=== PATIENT | female | born 1980 | race Caucasian/White ===

== ENCOUNTER 2024-03-31 09:56 | Outpatient (AMB) | payer OTHER, SELFPAY ==
--- NOTE | 2024-03-31 10:07 | AM.OFFWIN_ITS ---
Intake Vital Signs 03/31/24 10:09 Height 5 ft 2 in Weight 150 lb BMI 27.4 BP 114/70 Blood Pressure Location Lt brachial Position Sitting Pulse 81 Pulse Source Pulse Oximeter Temp 98.0 F Temp Source Oral Pulse Oximetry (%) 98 Oxygen Delivery Method Room Air Intake Visit Reasons: [employer] COVID + ~ cold symptoms Intake Note: Patient here for bilat ear fullness, sinus pressure, cough that has been present for about 1 week. she took a at home covid test which was positive. Patient Tobacco Use Status: Former Tobacco user Allergies No Known Allergies Allergy (Verified 03/31/24 10:10) Do you need a note to return to daycare/school/sports/work: Yes HPI [employer] COVID + ~ cold symptoms HPI Details This note is constructed using voice recognition software. While every effort has been made to ensure accuracy, surface room shop optician errors may have been included. The patient is a 43 year old female who presents to the clinic today with sinus pressure, ear pressure and mild sore throat for the past week and COVID positive at home as of last night. She denies fever, chills, shortness of breath, body aches. She has not taken anything to alleviate her symptoms, typically she just ?Toughs through it?. PFSH Social History Patient Tobacco Use Status: Former Tobacco user Review of Systems Const All systems reviewed & are unremarkable except as noted in HPI and below Physical Exam Vital Signs: Last Vital Signs Temp 98.0 F 03/31/24 10:09 Pulse 81 03/31/24 10:09 BP 114/70 03/31/24 10:09 Pulse Ox 98 03/31/24 10:09 Oxygen Delivery Method Room Air 03/31/24 10:09 BMI result Body Mass Index 27.4 Const General: cooperative, healthy appearing, comfortable and no acute distress Orientation/consciousness: patient oriented x3 Limitations: no limitations HEENT Head: Yes normal to inspection Ears: hearing grossly normal bilaterally, external ears normal and TM's normal bilaterally General nose exam: Normal external nose present, Normal nares present and No nasal discharge present Face and sinus: Yes normal facial exam and Yes sinuses nontender Mouth: Normal oral and palatal mucosa present and moist mucous membranes Throat: Yes tonsils normal, Yes uvula midline and Yes posterior oropharynx abnormal (Erythema) Eyes General: appearance normal, both eyes and all related structures Neck Neck: Yes normal visual inspection Resp Effort & Inspection: normal respiratory effort, able to speak in complete sentences, Actively coughing, no respiratory distress, not tachypneic, no tripod positioning and no use of accessory muscles Auscultation: clear to auscultation bilaterally Cardio Jugular venous distension: no JVD Rate: regular rate Rhythm: regular rhythm Heart sounds: S1 normal heart sound present, S2 normal heart sound present, no click, no gallops, no murmurs and no rubs Skin General skin exam: no rashes or lesions noted, elasticity normal and turgor normal Neuro General: patient oriented x3 Extrem General: Yes normal to inspection and Yes no clubbing, cyanosis or edema Assessment & Plan Assessment & Plan (1) COVID: Code(s): U07.1 - COVID-19 Plan: Viral deferred due to at-home positive test. Advised mask wearing while symptomatic and quarantine per current CDC guidelines. Reviewed at home support methods including hydration, humidification, vix vapor rub, sinus rinse, and otc treatment options. Discussed treatment with antiviral therapy for covid with paxlovid, including appropriate use and side effects, and need to start medication within 5 day of symptom onset, preferably within 48 hours of symptom onset. Patient wishes to decline antiviral therapy. Advised follow up with worsening symptoms such as dyspnea at rest, which would require emergent evaluation. Plan See above for full details and plan. Coding Level of Care Code New Pt Level 3 (07912) Diagnoses COVID U07.1
[2024-03-31 10:09] VITALS: BP 114/70; PULSE 81; TEMP 36.7; O2SAT 98; BMI 27.4
--- OUTSIDE RECORDS SUMMARY | 2024-04-06 01:21 | XMS_ITS | Continuity of Care Document ---
Author Name [facility] Organization [facility] Care Team Providers Care Data Technical Lead Name Role Phone [facility] Unavailable Unavailable Problems Combined list of problems from 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 It does not include entries that were removed or entered in error. Problem Status Onset Date Problem Type Date of Resolution Comments Source Segmental and somatic dysfunction of pelvic region Active 024 Diagnosis [id number] [facility] Other intervertebral disc degeneration, lumbar region Active 024 Diagnosis [id number] [facility] Segmental and somatic dysfunction of lumbar region Active 024 Diagnosis [id number]-[id number] [facility] Segmental and somatic dysfunction of sacral region Active 024 Diagnosis [id number] [facility] Segmental and somatic dysfunction of thoracic region Active 024 Diagnosis [id number] [facility] Cough, unspecified Active Condition DoD Dry eye syndrome of bilateral lacrimal glands Active Condition DoD Regular astigmatism, bilateral Active Condition [facility] marital problem Inactive Condition [facility] visit for: screening exam malignant neoplasm skin Inactive Condition [facility] skin neoplasm trunk benign Active Condition [facility] skin lesion [Sx] Inactive Condition [facility] routine pelvic exam Inactive Condition DoD cystitis Inactive Condition [facility] deployment Active Condition [facility] assess patient condition work-related occupational disease Inactive Condition ASSESS PATIENT CONDITION WORK-RELATED OCCUPATIONAL DISEASE (INITIAL POST-DEPLOYMENT ASSESSMENT: DOCUMENTED ON [id number]) [facility] pharyngitis Inactive Condition PHARYNGI TIS: 31 y/o f evaluated for throat irritation. Suspect PND, prescribed Cepacol for irritation/pain. RTC if symptoms worsen or do not improve. [facility] joint pain, localized in the knee Inactive Condition joint pain, localized in the knee: right knee exam raising posibility of lateral meniscal injury - although symptoms were improving after a few days on motrin and feel patient exacerbated by going back to running prematurely crutches x 48 hours to give period of rest off of the knee continue motrin, will add vicodin for improved pain control - med instructions and precautions given ice packs given NO running or cardio or LE wt lifting for at least next 10 days - may need to go longer until pain free when restarting activity do so gradually rtc if symptoms not steadily improving next 72 hours and sooner prn worsening DoD common cold Inactive Condition COMMON COLD DoD ankle joint pain Inactive Condition ank le joint pain: R ankle. Suspect mild inflammation in deltoid ligament from new boots. Will try ice and/or heat, along with tylenol as below. May use marcin wrap prn for comfort. f/u if pain worsening or not improving over the next 1-2 weeks. Use caution to avoid ice or uneven ground. May try otc orthotics. Pt v/u, agrees. DoD visit for: examination of subpopulation Active Condition Do[facility] headache Inactive Condition headache: Certainly may have underlying migraines, but not diagnosed as of yet. Suspect exacerbation due to caffiene withdrawal, stress of deployment, and sleep schedule getting adjusted. Will treat with tylenol, as this has worked in the past. May also try tylenol/butalbita l/caffiene prn, do not combine with tylenol. Hydrate well. Clean air filter in room. Keep headache diary to help sort out triggers. f/u with worsening pain or new sx. Pt v/u, agrees. DoD other specified viral disease Inactive Condition [facility] vertigo Inactive Condition [facility] visit for: services physical pre-deployment Active Condition [facility] Gynecologic Services Intrauterine Device (IUD) Checking Inactive Condition [facility] Intrauterine Device (IUD) Insertion Active Condition [facility] phase of life or life circumstance problem Active Condition [facility] routine history and physical Active Condition [facility] Supervision Of Normal Inactive Condition [facility] constipation Inactive Condition [facility]D sprain joint ligament pelvic symphysis pubis Inactive Condition [facility] lumbago Active Condition [facility] sciatica Active Condition [facility] Pap Smear (+) Low Grade Squamous Intraepith Lesion W/ Atypia Active Condition [facility] preg complications: antepartum cond or prior comp delivery Active Condition [facility] joint pain, localized in the wrist Active Condition [facility] visit for: postsurgical exam Active Condition [facility] allergic rhinitis Active Condition [facility] carbuncle on the ear Inactive Condition [facility] depression Active Condition [facility] Gynecologic Services Contraceptive Management Inactive Condition [facility] visit for: exam Active Condition [facility] decr move affecting care of mother - antepartum condit Active Condition [facility] pain in leg lower Active Condition [facility] foot pain (soft tissue) Active Condition [facility]D hyperlipidemia Active Condition [facility] Dietary Counseling Pertaining To Specific Condition Active Condition DoD dermatophytosis Active Condition 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 Active Condition [facility]D migraine headache Active Condition [facility] Pap Smear (+) Low Grade Squamous Intraepithelial Lesion Active Condition [facility] Aftercare Following Surgery Active Condition [facility] routine checkup (6 - 42 wk) Inactive Condition [facility] skin abscess Inactive Condition [facility] pyoderma Inactive Condition [facility] tobacco use Active Condition [facility] lymph node abscess preauricular right Inactive Condition [facility] Administrative Evaluation Services Inactive Condition [facility] cellulitis of right external ear Inactive Condition [facility] Oral Contraceptives Active Condition [facility] visit for: issue medical certificate Active Condition [facility] sore throat acute Inactive Condition [facility] upper respiratory infection Inactive Condition [facility] cystitis acute Inactive Condition cipro and pyridium given, increase fluid, tylenol and/or motrin prn for pain, f/u with PCM DoD cough Active Condition Fluids/res t encouraged. DoD acute lymphadenitis axillary left Active Condition Pts symptoms likely related to lymphadenopathy within the left axilla. Will have her try warm/moist compresses and take anti-inflammatori es OTC prn discomfort. Pt will be set up for ultrasound scan if the sx persist. DoD Guidance: Concerns About Inadequate Physical Activity Active Condition [facility]D Patient Education - Injury Prevention Active Condition [facility] Patient Education - Alcohol Active Condition [facility] Patient Education Dietary Food Sources For Nutrients Active Condition [facility] Patient Counseling: Active Condition DoD astigmatism Active Condition [facility] Laboratory Studies Active Condition Informed her th at they are not back and can take 2 wks to get back. DoD nicotine dependence Active Condition Recommend tobac co cessation. [facility] Gynecologic Service Prescrip Of Contracept Agent - Repeat Rx Inactive Condition Discussed control options, patient will continue with Cyn regimen. DoD personal history presenting hazards to health Active Condition dysplasia f/u DoD visit for: issue repeat prescription for medication Active Condition DoD visit for: administrative purpose Inactive Condition DoD female pelvic pain Active Condition [facility]D visit for: issue medical certificate fitness Inactive Condition pt with no feve r or nausa vomiting bleeding problems consistant with serious acute process, but pt advised to call back in things worsen to extent she feels need to go to er DoD malaise Active Condition Favor acut e viral syndrome. Normal labs. Cannot fully exclude early , but unlikely with contraception, neg Hcg, and recent/on-time menses. Recommended 48 hours of quarters, increase fluids, rest. F/U if not improving or with other issues/concerns. DoD visit for: services physical Active Condition pt doing well. she is not happy about her transfer. she does have a diagnosis of MDD and on two antidepressants. no history of SI or hospitalization. [facility] with [facility] [place] [facility] [place] [facility]. they will be able to provide adequate medical care in [place] [facility].she is medically clear to go. DoD acute bronchitis Inactive Condition DoD cervical dysplasia Active Condition [facility] abdominal pain in the central upper belly (epigastric) Inactive Condition [facility] Cerv Pap (+) Low Grade Squamous Intraepithelial Lesion Active Condition [facility] Cervical Pap Smear Inactive Condition DoD routine gynecological exam with cervical pap smear Active Condition [facility]D midback pain Active Condition DoD Other Physical Therapy Inactive Condition [facility]D cervicalgia Active Condition [facility] Gynecologic Services Contraceptive Management Active Condition will refill nuvaring and get her to schedule for a pap since she is due. DoD depression Active Condition doing ext remely well.Has been on for an extended period, so will give a year supply.f/u if any other questions or concerns DoD backache Inactive Condition DoD nonallopathic lesions lumbar Active Condition DoD nonallopathic lesions thoracic Active Condition [facility] back strain Inactive Condition will sen d to PT and get back exercises... likely her headaches are stress and tension related from the prolonged posture at work. [facility] Gynecologic Services Prescription Of Contraceptive Agents Inactive Condition Reviewed r/b/se again- no contraindications . To start with next cycle, and f/u prn DoD irregular length of menstrual periods Active Condition [facility] Preventive Medicine Established Patient Checkup Adult 18-39 Years Inactive Condition [facility]D All[facility] rhinitis [facility] Other intervertebral disc degeneration, lumbar region Active Condition [facility] Medications Combined list of outpatient medications from 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Medications provided include 1) outpatient medications from the last 15 months, and 2) patient-reported medications. Medication Details Route Status Patient Instructions Prescription Expires Prescription Number Last Dispense Date Ordering Provider Order Date Order Qty Source Claritin 10 mg oral tablet 1 tab(s), Oral, Daily, PRN allergy symptoms , # 90 tab(s), 3 total refill(s ), Maintena nce, 1 tab(s) Oral Daily,ID N:allerg y symptoms , Pharmacy : [facility] Oral (given by mouth) Ordered 90.0 0042C-A F-H[facility]t [facility] Flonase 50 mcg/inh nasal spray 50 mcg, Nostril- Both, BID, # 16 g, 5 total refill(s ), Maintena nce, 50 mcg Nostril- Both BID, Pharmacy : [facility] Nostri l-Both (into the nose) Ordered 16.0 0042C-A F-H-[facility]t [facility] FLONASE-OTC (BRAND) 50 MCG DIPESH SPSN [9.9] Take or use exactly as directed .For the nose. Active 05/05/2024 [id number] 4 [address] [place] [address] GoLYTELY oral powder for reconstitut ion 240 mL, Oral, every 10 min, PRN other (see comment) , per clinic instruct ions, # 4,000 EA, 0 total refill(s ), Maintena nce, bowel prep, 240 mL Oral every 10 min,PRN: other (see comment) ,Instr:p er clinic instruct ions, Pharmacy : [facility] Oral (given by mouth) Discont inued 03/24/2022 4000.0 0042C[facility] Loratadine (Alavert ODT) Tablet 10 mg Oral May cause drowsine ss.Obtai n advice for OTCs. Active 05/05/2024 [id number] 4 [address] [place] [address] meloxicam 15 mg oral tablet meloxica m 15 mg oral tablet Start Date: 10/02/20 Stop Date: 01/28/22 Status: Disconti nued Discont inued 01/28/2022 No Facilit y Access methocarbam ol (U/D) 750 MG ORAL TAB May cause drowsine ss. Active 06/10/2024 [id number] 4 [address] [place] [address] methocarbam ol (U/D) 750 MG ORAL TAB May cause drowsine ss. 03/03/2024 [id number] 3 [address] [place] [address] methocarbam ol 750 mg oral tablet 2 tab(s), Oral, TID, X 7 days, # 42 tab(s), 0 total refill(s ), Acute, 2 tab(s) Oral TID,x7 days, Pharmacy : [facility] Oral (given by mouth) Complet ed 06/18/2023 42.0 0042C-[facility] olopatadine 0.1% ophthalmic solution 1 drop(s), Eye-Both , BID, # 5 mL, 2 total refill(s ), Maintena nce, 1 drop(s) Eye-Both BID, Pharmacy : [facility] Both eyes Ordered 5.0 0042C[facility] omeprazole 20 mg oral delayed release capsule omeprazo le 20 mg oral delayed release capsule Start Date: 10/02/20 Stop Date: 01/28/22 Status: Drei bren Discont inued 01/28/2022 No Facilit y Access Robaxin-750 oral tablet See Instruct ions, take 1-2 tab(s) Oral as needed for muscle spasm up to three times a day, # 45 cap(s), 0 total refill(s ), Maintena nce, take 1-2 tab(s) Oral as needed for muscle spasm up to three times a day, Pharmacy : [facility] Ordered 45.0 0042C-A [facility] tiZANidine 2 mg oral tablet See Instruct ions, 2 tab(s) Oral every 8 hr, # 40 cap(s), 0 total refill(s ), Maintena nce, take 1-2 tabs every 6 hours as needed, 2 tab(s) Oral every 8 hr, Pharmacy : [facility] Discont inued 03/13/2022 40.0 0042C[facility] Allergies, Adverse Reactions, Alerts Combined list of allergies from 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 It does not include entries that were removed or entered in error. Substance Category Reaction Severity Reaction type Status Date Reported Comments Source No Known Allergies Drug allergy (disorder) active 10/15/2022 [facility] Immunizations Combined list of available immunizations from the 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 Source tetanus and diphtheria toxoids, adsorbed, preservative free, for adult use (2 Lf of tetanus toxoid and 2 Lf of diphtheria toxoid) 3 2021 [id number] Sanofi Pasteur (PMC) complet ed tetanus and diphtheri a toxoids, adsorbed, preservat alex free, for adult use (2 Lf of tetanus toxoid and 2 Lf of diphtheri a toxoid) [facility] influenza, injectable, quadrivalent- pf 2020 [id number] 150 Gl[employer] complet ed influenza , injectabl e, quadrival ent-pf 02/22/21 Given Ambulat ory Pharmac y Influenza, injectable, quadrivalent, preservative free 8 2020 [id number] 150 [employer] End TechnologiesNICE (SKB) complet ed Influenza , injectabl e, quadrival ent, preservat alex free DoD COVID Vaccine Pfizer 2020 [id number] PFIZER complet ed COVID Vaccine [facility] 02/05/21 Given Ambulat ory Pharmac y SARS-COV-2 (COVID-19) vaccine, mRNA, spike protein, LNP, preservative free, 30 mcg/0.3mL dose 2 2020 [id number] 208 [employer], Inc (PFR) complet ed SARS-COV- 2 (COVID-19 ) vaccine, mRNA, spike protein, LNP, preservat alex free, 30 mcg/0.3mL dose DoD COVID Vaccine Pfizer 2020 [id number] PFIZER complet ed COVID Vaccine [facility] 01/15/21 Given Ambulat ory Pharmac y SARS-COV-2 (COVID-19) vaccine, mRNA, spike protein, LNP, preservative free, 30 mcg/0.3mL dose 1 2020 [id number] 208 Buck Mason, [employer] (PFR) complet ed SARS-COV- 2 (COVID-19 ) vaccine, mRNA, spike protein, LNP, preservat alex free, 30 mcg/0.3mL dose DoD influenza, injectable, quadrivalent- pf 2019 [id number] 150 Seqirus complet ed influenza , injectabl e, quadrival ent-pf 03/02/20 Given Ambulat ory Pharmac y Influenza, injectable, quadrivalent, preservative free 1 2019 [id number] 077 150 Seqirus (SEQ) complet ed Influenza , injectabl e, quadrival ent, preservat alex free DoD influenza, injectable, quadrivalent- pf 2018 [id number] 150 Seqirus complet ed influenza , injectabl e, quadrival ent-pf 02/23/19 Given Ambulat ory Pharmac y Influenza, injectable, quadrivalent, preservative free 16 2018 [id number] 601 150 Seqirus (SEQ) complet ed Influenza , injectabl e, quadrival ent, preservat alex free DoD influenza, injectable, quadrivalent- pf 2017 [id number] 150 Seqirus complet ed influenza , injectabl e, quadrival ent-pf 02/27/18 Given Ambulat ory Pharmac y Influenza, injectable, quadrivalent, preservative free 15 2017 [id number] 150 Seqirus (SEQ) comple t ed Influenza , injectabl e, quadrival ent, preservat alex free DoD tuberculin purified protein derivative 2016 [id number] 96 sanofi pasteur complet ed tuberculi n purified protein derivativ e 04/03/17 Given Ambulat ory Pharmac y influenza, seasonal, injectable-pf 2016 [id number] 140 Seqirus complet ed influenza , seasonal, injectabl e-pf 02/27/17 Given Ambulat ory Pharmac y Influenza, seasonal, injectable, preservative free 14 2016 [id number] 140 Seqirus (SEQ) comple t ed Influenza , seasonal, injectabl e, preservat alex free DoD influenza, seasonal, injectable 2015 [id number] 141 Seqirus complet ed influenza , seasonal, injectabl e 01/05/16 Given Ambulat ory Pharmac y Influenza, seasonal, injectable 13 2015 [id number] 141 Seqirus (SEQ) complet ed Influenza , seasonal, injectabl e DoD influenza, live, intranasal,qu adrivalent 2012 [id number] 149 Medimmune Inc comple t ed influenza , live, intranasa l,quadriv alent 03/01/13 Given Ambulat ory Pharmac y influenza, live, intranasal, quadrivalent 12 2012 [id number] 149 MedImmune, Inc. (MED) complet ed influenza , live, intranasa l, quadrival ent DoD influenza virus vaccine, live 2011 [id number] 111 Medimmune Inc comple t ed influenza virus vaccine, live 02/05/12 Given Ambulat ory Pharmac y influenza virus vaccine, live, attenuated, for intranasal use 11 2011 [id number] 111 Metreos Corporation, Inc. (MED) complet ed influenza virus vaccine, live, attenuate d, for intranasa l use DoD typhoid Vi capsular polysaccharid e vac 2011 [id number] 101 sanofi pasteur complet ed typhoid Vi capsular polysacch aride vac 11/21/11 Given Ambulat ory Pharmac y anthrax vaccine 2011 [id number] 24 Emergent [employer] complet ed anthrax vaccine 11/21/11 Given Ambulat ory Pharmac y anthrax vaccine 5 2011 [id number] 24 [employer] [place] (MIP) complet ed anthrax vaccine DoD typhoid Vi capsular polysaccharid e vaccine 1 2011 [id number] 101 Sanofi Pasteur (PMC) complet ed typhoid Vi capsular polysacch aride vaccine DoD tetanus, diphtheria, acellular pertu is 2011 [id number] 115 GlaxoSmithKli ks complet ed tetanus, diphtheri a, acellular pertussis 05/07/11 Given Ambulat ory Pharmac y tetanus toxoid, reduced diphtheria toxoid, and acellular pertu is vaccine, adsorbed 0 2011 [id number] 115 Buzzoek (SKB) complet ed tetanus toxoid, reduced diphtheri a toxoid, and acellular pertussis vaccine, adsorbed DoD influenza, seasonal, injectable-pf 2010 [id number] 140 complet ed influenza , seasonal, injectabl e-pf 01/30/11 Given Ambulat ory Pharmac y Influenza, seasonal, injectable, preservative free 1 2010 140 Transcribed (TRS) complet ed Influenza , seasonal, injectabl e, preservat alex free DoD influenza virus vaccine,split 2009 [id number] 15 sanofi pasteur complet ed influenza virus vaccine,s plit 03/20/10 Given Ambulat ory Pharmac y influenza virus vaccine, split virus (incl. purified surface antigen)-reti red CODE 1 2009 [id number] 15 Sanofi Pasteur (PMC) complet ed influenza virus vaccine, split virus (incl. purified surface antigen)- retired CODE DoD Novel influenza-H1N 1-09, injectable 2009 [id number] 127 Novartis Pharmaceutica complet ed Novel influenza -[id number], injectabl e 05/18/09 Given Ambulat ory Pharmac y Novel influenza-H1N 1-09, injectable 1 2009 [id number] 127 Novartis Vigilisticstica l Y[place]. (NOV) complet ed Novel influenza -[id number], injectabl e DoD influenza virus vaccine, live 2008 [id number] 111 [employer] Storage [employer] Inc comple t ed influenza virus vaccine, live 01/16/09 Given Ambulat ory Pharmac y influenza virus vaccine, live, attenuated, for intranasal use 1 2008 [id number] 111 [employer]reos Corporation, [employer]. (MED) complet ed influenza virus vaccine, live, attenuate d, for intranasa l use DoD anthrax vaccine 2008 [id number] 24 Emer[employer] complet ed anthrax vaccine 08/08/08 Given Ambulat ory Pharmac y anthrax vaccine 5 2008 [id number] [employer] [place] (MIP) complet ed anthrax vaccine DoD influenza virus vaccine, live 2007 [id number] 111 [employer] [facility] comple t ed influenza virus vaccine, live 01/20/08 Given Ambulat ory Pharmac y anthrax vaccine 2007 [id number] 24 [employer] complet ed anthrax vaccine 01/20/08 Given Ambulat ory Pharmac y anthrax vaccine 4 2007 [id number] [employer] [place] (MIP) complet ed anthrax vaccine DoD influenza virus vaccine, live, attenuated, for intranasal use 1 2007 [id number] 111 [employer], [employer]. (MED) complet ed influenza virus vaccine, live, attenuate d, for intranasa l use DoD anthrax vaccine 2007 [id number] 24 [employer] complet ed anthrax vaccine 08/18/07 Given Ambulat ory Pharmac y anthrax vaccine 3 2007 [id number] 24 [employer] [place] (MIP) complet ed anthrax vaccine DoD anthrax vaccine 2007 [id number] [employer] complet ed anthrax vaccine 08/04/07 Given Ambulat ory Pharmac y vaccinia (smallpox) vaccine 2007 [id number] 75 [employer] complet ed vaccinia (smallpox ) vaccine 4/9/08 Given Ambulat ory Pharmac y anthrax vaccine 2 2007 [id number] 24 [employer] Adina (MIP) complet ed anthrax vaccine DoD vaccinia (smallpox) vaccine 1 2007 [id number] [id number] 75 [facility] complet ed vaccinia (smallpox ) vaccine DoD anthrax vaccine 2007 [id number] [employer] complet ed anthrax vaccine 07/15/07 Given Ambulat ory Pharmac y typhoid Vi capsular polysaccharid e vac 2007 [id number] sanofi pasteur complet ed typhoid Vi capsular polysacch aride vac 07/15/07 Given Ambulat ory Pharmac y anthrax vaccine 1 2007 [id number] 24 [employer] [place] (MIP) complet ed anthrax vaccine DoD typhoid Vi capsular polysaccharid e vaccine 1 2007 [id number] Sanofi Pasteur ([facility]) complet ed typhoid Vi capsular polysacch aride vaccine DoD influenza virus vaccine, live 2006 [id number] 111 [employer] comple t ed influenza virus vaccine, live 03/24/07 Given Ambulat ory Pharmac y influenza virus vaccine, live, attenuated, for intranasal use 1 2006 [id number] 111 [employer]re[employer] Corporation, Inc. (MED) complet ed influenza virus vaccine, live, attenuate d, for intranasa l use [facility] influenza virus vaccine,split 2005 [id number] 15 sanofi pasteur complet ed influenza virus vaccine,s plit 04/14/06 Given Ambulat ory Pharmac y influenza virus vaccine, split virus (incl. purified surface antigen)-reti red CODE 1 2005 [id number] 15 Sanofi Pasteur ([facility]) complet ed influenza virus vaccine, split virus (incl. purified surface antigen)- retired CODE DoD influenza virus vaccine,split 2004 [id number] 15 sanofi pasteur complet ed influenza virus vaccine,s plit 04/11/05 Given Ambulat ory Pharmac y influenza virus vaccine, split virus (incl. purified surface antigen)-reti red CODE 1 2004 [id number] 15 Sanofi Pasteur ([facility]) complet ed influenza virus vaccine, split virus (incl. purified surface antigen)- retired CODE [facility] influenza virus vaccine, whole virus 2004 [id number] 16 sanofi pasteur complet ed influenza virus vaccine, whole virus 05/07/04 Given Ambulat ory Pharmac y influenza virus vaccine, whole virus 0 2004 [id number] 16 Sanofi Pasteur (PMC) complet ed influenza virus vaccine, whole virus DoD hepatitis A-hepatitis B vaccine 2003 [id number] 104 GlaxoSmithKli ne complet ed hepatitis A-hepatit is B vaccine 02/09/04 Given Ambulat ory Pharmac y hepatitis A and hepatitis B vaccine 3 2003 [id number] A6 104 SmithKline (SKB) complet ed hepatitis A and hepatitis B vaccine DoD influenza virus vaccine, whole virus 2003 [id number] 16 Novartis Pharmaceutica ls complet ed influenza virus vaccine, whole virus 06/09/03 Given Ambulat ory Pharmac y influenza virus vaccine, whole virus 0 2003 [id number] [employer] ls (PWJ) complet ed influenza virus vaccine, whole virus DoD hepatitis A-hepatitis B vaccine 2002 [id number] 6 104 GlaxoSmithKli ne complet ed hepatitis A-hepatit is B vaccine 09/24/02 Given Ambulat ory Pharmac y hepatitis A and hepatitis B vaccine 2 2002 [id number] 6 104 SmithKline (SKB) complet ed hepatitis A and hepatitis B vaccine DoD hepatitis A-hepatitis B vaccine 2002 [id number] 6 104 GlaxoSmithKli ne complet ed hepatitis A-hepatit is B vaccine 08/26/02 Given Ambulat ory Pharmac y measles, mumps and rubella virus vaccine 0 2002 03 () Not Given measles, mumps and rubella virus vaccine DoD varicella virus vaccine 1 2002 21 () Not Given varicella virus vaccine DoD hepatitis A and hepatitis B vaccine 1 2002 [id number] 6 104 SmithKline (SKB) complet ed hepatitis A and hepatitis B vaccine DoD tuberculin purified protein derivative 2002 [id number] 96 sanofi pasteur complet ed tuberculi n purified protein derivativ e 08/19/02 Given Ambulat ory Pharmac y meningococcal polysaccharid e (MPSV4) 2002 [id number] 32 sanofi pasteur complet ed meningoco ccal polysacch aride (MPSV4) 08/19/02 Given Ambulat ory Pharmac y influenza virus vaccine, whole virus 2002 [id number] 16 sanofi pasteur complet ed influenza virus vaccine, whole virus 08/19/02 Given Ambulat ory Pharmac y poliovirus vaccine, inactivated 2002 [id number] 10 sanofi pasteur complet ed polioviru s vaccine, inactivat ed 08/19/02 Given Ambulat ory Pharmac y tetanus-dipht h toxoids (Td) adult/adol 2002 [id number] 09 sanofi pasteur complet ed tetanus-d iphth toxoids (Td) adult/ado l 08/19/02 Given Ambulat ory Pharmac y tetanus and diphtheria toxoids, adsorbed, preservative free, for adult use (2 Lf of tetanus toxoid and 2 Lf of diphtheria toxoid) 0 2002 [id number] 09 Sanofi Pasteur (PMC) complet ed tetanus and diphtheri a toxoids, adsorbed, preservat alex free, for adult use (2 Lf of tetanus toxoid and 2 Lf of diphtheri a toxoid) DoD poliovirus vaccine, inactivated 0 2002 [id number] 10 Sanofi Pasteur (PMC) complet ed polioviru s vaccine, inactivat ed DoD influenza virus vaccine, whole virus 0 2002 [id number] 16 Sanofi Pasteur (PMC) complet ed influenza virus vaccine, whole virus DoD meningococcal polysaccharid e vaccine (MPSV4) 0 2002 [id number] 32 Sanofi Pasteur (PMC) complet ed meningoco ccal polysacch aride vaccine (MPSV4) DoD Results Combined list of recent chemistry, hematology and other laboratory results from Department of Defense and Veterans Affairs, ranging from 15 months to all on record, depending upon the facility. Order Name Results Value Reference Range Date Interpretation Specimen Comments Source Immunolo gy/Serol ogy QFT Incubation LC Incubati on performe d. 04/09 Result Comment: Performed At: [address] [id number] Ovidio Vang MD Ph:[phone] [facility] Immunolo gy/Serol ogy QFT-TB Gold Plus LC Negative 04/09 Result Comment: No response to M tuberculosi s antigens detected. Infection with M tuberculosi s is unlikely, but high risk individuals should be considered for additional testing (ATS/IDSA/C DC Clinical Practice Guidelines, 2017). The reference range is an Antigen minus Nil result of <0.35 IU/mL. Chemilumine scence immunoassay methodology Performed At: [address] [id number] Ovidio Vang MD Ph:[phone] [facility] Infectio us Disease HIV-1/O/2. EPI NON-REAC TIVE 04/09 Result Comment: INTERPRETAT ION(S): This method is a screening procedure for the detection of HIV p24 Antigen and Antibodies to HIV-1, including Group O, and/or HIV-2. NON-REACTIV E: HIV-1 antigen and HIV-1 / HIV-2 antibodies were not detected. No laboratory evidence of HIV infection. A negative test result does not exclude the possibility of exposure to or infection with HIV. HIV antibodies and/or p24 antigen may be undetectabl e in some stages of the infection and in some clinical conditions. If acute HIV infection is suspected, consider submitting another specimen to a reference laboratory for HIV-1 RNA. SCREEN REACTIVE - CONFIRMATIO N TO FOLLOW: Possible presence of HIV-1 antibodies, HIV-2 antibodies and/or HIV-1 p24 antigen. Specimen will reflex to the confirmatio n testing that fulfills the Center for Disease Control and Prevention' s HIV diagnostic algorithm. Refer to [facility] Lab Guide for additional information : [email or web address]x. [email or web address] x Testing performed by [employer] [facility]imeshuminesevelyn ce. Performed by: Epidemiolog y Laboratory Service [facility] [id number] [place] [phone] [facility] Immunolo gy/Serol ogy QFT Criteria LC COMMENT 04/09 Result Comment: QuantiFERON -TB Gold Plus is a qualitative indirect test for M tuberculosi s infection (including disease) and is intended for use in conjunction with risk assessment, radiography , and other medical and diagnostic evaluations . The QuantiFERON -TB Gold Plus result is determined by subtracting the Nil value from either TB antigen (Ag) value. The Mitogen tube serves as a control for the test. [facility] Immunolo gy/Serol ogy QFT TB1 Ag Value LC 0.47 IU/mL 04/09 [facility] Immunolo gy/Serol ogy QFT TB2 Ag Value LC 0.45 IU/mL 04/09 [facility] Immunolo gy/Serol ogy QFT Nil Value LC 0.38 IU/mL 04/09 [facility] Immunolo gy/Serol ogy QFT Mitogen Value LC >10.00 IU/mL 04/09 Result Comment: Performed At: [address] [id number] Ovidio Vang MD Ph:[phone] [facility] Vital Signs Combined list of inpatient and outpatient Vital Signs from Department of Defense and Veterans Affairs, ranging from 12 months to all on record, depending upon the facility. Vital Sign Value Date Comments Source Peripheral Pulse Rate 63bpm 03/24/2022 16:15:00 [facility] Heart Rate Monitored 62bpm 03/24/2022 16:15:00 Ambulatory Pharmacy Respiratory Rate 11br/min 03/24/2022 16:15:00 [facility]ulatory [facility] Systolic Blood Pressure 96mm[Hg] 03/24/2022 16:15:00 Ambulatory Pharmacy Diastolic Blood Pressure 65mm[Hg] 03/24/2022 16:15:00 [facility]ulatory [facility]acy Mean Arterial Pressure, Calc 75mm[Hg] 03/24/2022 16:15:00 Ambulatory P harmacy Systolic Blood Pressure 103mm[Hg] 03/04/2023 15:02:00 Ambulatory Pharmacy Diastolic Blood Pressure 64mm[Hg] 03/04/2023 15:02:00 Ambulatory Pharmacy Mean Arterial Pressure, Calc 77mm[Hg] 03/04/2023 15:02:00 Ambulatory P harmacy Peripheral Pulse Rate 69bpm 03/04/2023 15:02:00 Ambulatory Pharmacy Respiratory Rate 16br/min 03/04/2023 15:02:00 Ambulatory Pharmacy Temperature Oral 36.9Cel 03/04/2023 15:02:00 Ambulatory Pharmacy BP Site 03/04/2023 15:02:00 [facility] Blood Pressure Manual 03/04/2023 15:02:00 Ambulatory Pharmacy Peripheral Pulse Rate 77bpm 03/24/2022 15:45:00 Ambulatory Pharmacy Heart Rate Monitored 75bpm 03/24/2022 15:45:00 Ambulatory Pharmacy Respiratory Rate 12br/min 03/24/2022 15:45:00 Ambulatory Pharmacy Systolic Blood Pressure 95mm[Hg] 03/24/2022 15:45:00 Ambulatory Pharmacy Diastolic Blood Pressure 57mm[Hg] 03/24/2022 15:45:00 Ambulatory Pharmacy Mean Arterial Pressure, Calc 70mm[Hg] 03/24/2022 15:45:00 Ambulatory P harmacy Peripheral Pulse Rate 67bpm 03/24/2022 16:05:00 Ambulatory Pharmacy Heart Rate Monitored 65bpm 03/24/2022 16:05:00 Ambulatory Pharmacy Respiratory Rate 11br/min 03/24/2022 16:05:00 Ambulatory Pharmacy Systolic Blood Pressure 97mm[Hg] 03/24/2022 16:05:00 Ambulatory Pharmacy Diastolic Blood Pressure 59mm[Hg] 03/24/2022 16:05:00 Ambulatory Pharmacy Mean Arterial Pressure, Calc 72mm[Hg] 03/24/2022 16:05:00 Ambulatory P harmacy Heart Rate Monitored 82bpm 03/24/2022 15:40:00 Ambulatory Pharmacy Peripheral Pulse Rate 74bpm 03/24/2022 15:55:00 Ambulatory Pharmacy Heart Rate Monitored 68bpm 03/24/2022 15:55:00 Ambulatory Pharmacy Respiratory Rate 11br/min 03/24/2022 15:55:00 Ambulatory Pharmacy Systolic Blood Pressure 94mm[Hg] 03/24/2022 15:55:00 Ambulatory Pharmacy Diastolic Blood Pressure 55mm[Hg] 03/24/2022 15:55:00 Ambulatory Pharmacy Mean Arterial Pressure, Calc 68mm[Hg] 03/24/2022 15:55:00 Ambulatory P harmacy Temperature Oral 36.7Cel 01/28/2022 13:46:00 Ambulatory Pharmacy BP Site 01/28/2022 13:46:00 [facility] Blood Pressure Manual 01/28/2022 13:46:00 Ambulatory Pharmacy Temperature Oral 36.8Cel 03/13/2022 21:14:00 Ambulatory Pharmacy BP Site 03/13/2022 21:14:00 [facility] Blood Pressure Manual 03/13/2022 21:14:00 Ambulatory Pharmacy Peripheral Pulse Rate 67bpm 03/24/2022 16:00:00 Ambulatory Pharmacy Heart Rate Monitored 70bpm 03/24/2022 16:00:00 Ambulatory Pharmacy Respiratory Rate 19br/min 03/24/2022 16:00:00 Ambulatory Pharmacy Systolic Blood Pressure 102mm[Hg] 03/24/2022 16:00:00 Ambulatory Pharmacy Diastolic Blood Pressure 64mm[Hg] 03/24/2022 16:00:00 Ambulatory Pharmacy Mean Arterial Pressure, Calc 77mm[Hg] 03/24/2022 16:00:00 Ambulatory P harmacy Peripheral Pulse Rate 62bpm 03/24/2022 16:20:00 Ambulatory Pharmacy Heart Rate Monitored 69bpm 03/24/2022 16:20:00 Ambulatory Pharmacy Respiratory Rate 14br/min 03/24/2022 16:20:00 Ambulatory Pharmacy Systolic Blood Pressure 102mm[Hg] 03/24/2022 16:20:00 Ambulatory Pharmacy Diastolic Blood Pressure 62mm[Hg] 03/24/2022 16:20:00 Ambulatory Pharmacy Mean Arterial Pressure, Calc 75mm[Hg] 03/24/2022 16:20:00 Ambulatory P harmacy Heart Rate Monitored 73bpm 03/24/2022 15:35:00 Ambulatory Pharmacy Peripheral Pulse Rate 75bpm 03/24/2022 15:50:00 Ambulatory Pharmacy Heart Rate Monitored 77bpm 03/24/2022 15:50:00 Ambulatory Pharmacy Respiratory Rate 12br/min 03/24/2022 15:50:00 Ambulatory Pharmacy Systolic Blood Pressure 100mm[Hg] 03/24/2022 15:50:00 Ambulatory Pharmacy Diastolic Blood Pressure 55mm[Hg] 03/24/2022 15:50:00 Ambulatory Pharmacy Mean Arterial Pressure, Calc 70mm[Hg] 03/24/2022 15:50:00 Ambulatory P harmacy Temperature Temporal Artery 36.3Cel 03/24/2022 15:04:00 Ambulatory Pharmacy Systolic Blood Pressure 118mm[Hg] 05/06/2023 19:28:00 Ambulatory Pharmacy Diastolic Blood Pressure 86mm[Hg] 05/06/2023 19:28:00 Ambulatory Pharmacy Mean Arterial Pressure, Calc 97mm[Hg] 05/06/2023 19:28:00 Ambulatory P harmacy Peripheral Pulse Rate 83bpm 05/06/2023 19:28:00 Ambulatory Pharmacy Respiratory Rate 16br/min 05/06/2023 19:28:00 Ambulatory Pharmacy Temperature Oral 36.8Cel 05/06/2023 19:28:00 Ambulatory Pharmacy BP Site 05/06/2023 19:28:00 [facility] Blood Pressure Manual 05/06/2023 19:28:00 Ambulatory Pharmacy Peripheral Pulse Rate 62bpm 03/24/2022 16:10:00 Ambulatory Pharmacy Heart Rate Monitored 63bpm 03/24/2022 16:10:00 Ambulatory Pharmacy Respiratory Rate 12br/min 03/24/2022 16:10:00 Ambulatory Pharmacy Systolic Blood Pressure 95mm[Hg] 03/24/2022 16:10:00 Ambulatory Pharmacy Diastolic Blood Pressure 63mm[Hg] 03/24/2022 16:10:00 Ambulatory Pharmacy Mean Arterial Pressure, Calc 74mm[Hg] 03/24/2022 16:10:00 Ambulatory P harmacy Encounters Combined list of: 1) Encounters from Department of Veterans Affairs facilities going back up to thelast 18 months. 2) Encounters from the Department of Defense facilities going back up to 280 months. Location Location Details Encounter Type Encounter Number Reason For Visit Attending Provider ADM Date DC Date Status Disposition Source [employer](Patient Support Specialist ecology) OUTPATIENT [id number] UMESH CHRISTIE 09/25 Released w/o Limitations [employer](G ynecolo gy) [employer](Patient Support Specialist ecology) OUTPATIENT [id number] EVAL LUMP IN VAGINAL AREA BALJIT FENTON 02/21 Released w/o Limitations [employer](G ynecolo gy) [facility] OUTPATIENT [id number] CONSULT ATION FOR BACK PAIN AND HEADACH ES AMENTTANION L 09/08 Released w/o Limitations [employer](F amily Practic e) [employer](Phy sical Therapy) OUTPATIENT [id number] BACK STRAIN RASHIDA RODRIGUEZRI L 09/15 Released w/o Limitations [employer](P hysical Therapy ) [employer](Phy sical Therapy) OUTPATIENT [id number] JENNIFER RHODRI L 09/18 Released w/o Limitations [employer](P hysical Therapy ) [employer](Beh avior Health Consultan t) OUTPATIENT [id number] referra l from ILIR Ricardo 09/23 Released w/o Limitations [employer](B ehavior Health Consult ant) [employer]([facility]) OUTPATIENT [id number] RENEWAL OF BCP'S AMENT, BAUTISTA L 09/26 Released w/o Limitations [employer](F amily Practic e) [employer](Phy sical Therapy) OUTPATIENT [id number] VAISHALI RODRIGUEZ Myriam 10/02 Released w/o Limitations [employer](P hysical Therapy ) [employer]([facility] Consultan t) OUTPATIENT [id number] f/u VIRAL, ILIR W 10/14 Released w/o Limitations [employer](B ehavior Health Consult ant) [employer](Patient Support Specialist ecology) OUTPATIENT [id number] PAP EXAM BALJIT FENTON S 10/21 Released w/o Limitations [employer](G ynecolo gy) [employer]([facility] Consultan t) OUTPATIENT [id number] f/u VIRAL, ILIR W 11/04 Released w/o Limitations [employer] [facility](B ehavior Health Consult ant) [facility]([facility]) OUTPATIENT [id number] F/U ON MED AMENBAUTISTA Wilson L 11/05 Released w/o Limitations [employer] [facility](F amily Practic e) [employer](Patient Support Specialist ecology) OUTPATIENT [id number] colpo ELICEO, BALJIT S 11/20 Released w/o Limitations [employer](G ynecolo gy) [facility]([facility]) OUTPATIENT [id number] SEVERE STOMACH PAINS RAYMOND MARTINEZ 02/25 Released w/o Limitations [facility] [facility](F amily Practic e) [employer](Patient Support Specialist ecology) OUTPATIENT [id number] COLPO ELICEO, BALJIT S 04/02 Released w/o Limitations [employer](G ynecolo gy) [facility]([facility]) OUTPATIENT [id number] SOB/COU GH/DIAR RAYMOND JARA 04/28 Sick at Home/Quarter s [employer] [facility](F amily Practic e) [facility]([facility]) OUTPATIENT [id number] MARLO ALBA 05/20 Released w/o Limitations [facility] [facility](F amily Practic e) [facility]([facility]) OUTPATIENT [id number] DIZZY/L IGHT HEADED/ BEL BLISSMARINE FRAGOSO Corie 07/06 Sick at Home/Quarter s [facility](F amily Practic e) [facility]) TELE CONSULT [id number] RLQ pain MAYRA EARLY I 11/02 [facility](A fter Hours [facility]) [facility]) OUTPATIENT [id number] RLQ pain FLY RIVERA Yasmeen 11/02 Released w/o Limitations [facility] [facility](F amily Practic e) [facility] [facility] [employer]([facility]) TELE CONSULT [id number] lab BRANDT FALCON L 11/03 [facility](F amily Practic e) [employer](Patient Support Specialist ecology) OUTPATIENT [id number] FU PAP FOR COLPOSC OPY BALJIT FENTON S 11/06 Released w/o Limitations [employer](G ynecolo gy) [facility](Int ernal Medicine) TELE CONSULT [id number] MILTON BUENO 01/26 [facility](I nternal Medicin e) [facility] [employer]([facility]) OUTPATIENT [id number] RX REFILL NATALIAYAAKOV DOM Tomás 02/10 Released w/o Limitations [facility] [facility](F amily Practic e) [facility](Patient Support Specialist ecology) OUTPATIENT [id number] f/u pap BALJIT FENTON S 03/04 Released w/o Limitations [facility](G ynecolo gy) [facility]) TELE CONSULT [id number] labs GREERCANDI Tomás 03/11 [facility](F amily Practic e) [facility](Opt ometry) OUTPATIENT [id number] EYE EXAM TIGRE ODELL 03/12 Released w/o Limitations [facility](O ptometr y) [facility]) TELE CONSULT [id number] other CAMILLA GARCIA 04/16 [facility](F amily Practic e) [facility]) TELE CONSULT [id number] appt CAMILLA GARCIA 05/14 [employer](F amily Practic e) [facility](Fam alan Practice) OUTPATIENT [id number] JERRY BALL 06/17 Released w/o Limitations [employer] [facility](F amily Practic e) [facility]([facility]) OUTPATIENT [id number] MEDICAL DONNA GARCIA 06/18 Released w/o Limitations [facility] [facility](F amily Practic e) [facility] [employer]([facility]) TELE CONSULT [id number] form RADHA CAMILLA L 06/23 [employer] [facility](F amily Practic e) [facility]([facility]) OUTPATIENT [id number] PAINFUL LUMP UNDER ARM SANTOSKARISE R 08/09 Released w/o Limitations [employer] [facility](F amily Practic e) [employer](Patient Support Specialist ecology) OUTPATIENT [id number] f/u BALJIT Huynh S 09/08 Released w/o Limitations [employer](G ynecolo gy) [employer](War rior Operation al Med A-AD) OUTPATIENT [id number] BAD COUGH ANDREINA ISABEL 10/18 Released w/o Limitations [employer](W arrior Operati onal Med A-AD) [employer](OAB Emergency ) OUTPATIENT [id number] SHARATH GERMAN 11/21 Released w/o Limitations [employer](O AB Emergen cy) [employer](War rior Operation al Med A-AD) OUTPATIENT [id number] [facility]. BARON LARA 11/27 Released w/o Limitations [employer](W arrior Operati onal Med A-AD) [employer](OAB Emergency ) OUTPATIENT [id number] SID LOUIS 05/12 Released w/o Limitations [employer](O AB Emergen cy) [employer](War rior Operation al Med A-AD) OUTPATIENT [id number] sore throat x 1wk RITESH OLMSTEAD 05/18 Released w/o Limitations [employer](W arrior Operati onal Med A-AD) [employer](War rior Operation al Med A-AD) OUTPATIENT [id number] OSS AND PHA MARINE JORGE 07/18 Released w/o Limitations [employer](W arrior Operati onal Med A-AD) [employer](PHA Cell) OUTPATIENT [id number] Medical SRI Lay 07/18 Released w/o Limitations [employer](P COCHRAN Cell) [employer](Fam alan Health [facility] Cl Eg) OUTPATIENT [id number] ear is swollen BETSY ABBASI 02/06 Released w/o Limitations [employer](F amily Health [facility] Cl Eg) [employer](Fam alan [facility] Eg) TELE CONSULT [id number] Painful knot on her ear ALEXEY JACKSONLavern [place] 02/22 Referred for Appointment [employer] [facility](F amily [facility] Eg) [employer](Fam alan [facility] Eg) OUTPATIENT [id number] f/u knot on head LORE ANT Iram 02/23 Released w/o Limitations [employer](F amily Health [facility] Eg) [employer]([place] laryngolo EG) OUTPATIENT [id number] swollMARINE Griffin 02/23 Released w/o Limitations [employer](O tolaryn golo EG) [employer]([place] laryngolo EG) OUTPATIENT [id number] f/u from proc on Thursday (per Nohemi ) MARINE MEADE 02/26 Released w/o Limitations [employer](O tolaryn golo EG) [employer](Fam al[facility] Eg) TELE CONSULT [id number] TEST RESULTS ALEXEY JACKSONLavern [place] 03/01 Referred for Appointment [employer] [facility](F amily Health [facility] Eg) [employer](Ernie matology EG) OUTPATIENT [id number] CELLULI TIS OF THE RIGHT EAR...S PEC...R ESCHEDU LE DUE TO STORM.. .SIM MONROE 03/27 Released w/o Limitations [employer](D ermatol ogy EG) [facility] [facility](Obs tetrics/G ynecology Cl Eg) OUTPATIENT [id number] 10 week nob GRAZYNA LEAL 03/28 Released w/o Limitations [employer](O bstetri cs/Gyne cology Cl Eg) [employer](Ernie matology EG) OUTPATIENT [id number] per SIM Pandey 03/30 Released w/o Limitations [employer] [facility] [employer](D ermatol ogy EG) [facility](Ob/ Patient Support Specialist L&D Clinic Eg) TELE CONSULT [id number] Consult GRAZYNA LEAL 04/26 [employer] [facility] [employer](O b/Patient Support Specialist L&D Clinic Eg) [facility](Obs tetrics/G ynecology Cl Eg) OUTPATIENT [id number] 15WKS OB APPT GRAZYNA LEAL 05/09 Released w/o Limitations [employer](O bstetri cs/Gyne cology Cl Eg) [facility](Obs tetrics/G ynecology Cl Eg) OUTPATIENT [id number] 18WKS OB APPT GRAZYNA LEAL 05/23 Released w/o Limitations [facility](O bstetri cs/Gyne cology Cl Eg) [facility](Obs tetrics/G ynecology Cl Eg) TELE CONSULT [id number] pt 26 wks can't make appt tomorro w, pls call to NAZIA Garcia 06/19 Referred for Appointment [facility](O bstetri cs/Gyne cology Cl Eg) [facility](Obs tetrics/G ynecology Cl Eg) TELE CONSULT [id number] OB- CRISTHIAN Yanes 06/25 Referred for Appointment [facility](O bstetri cs/Gyne cology Cl Eg) [facility](Obs tetrics/G ynecology Cl Eg) OUTPATIENT [id number] ob fu....2 5 weeks. GRAZYNA LEAL 06/29 Released w/o Limitations [employer] [facility](O bstetri cs/Gyne cology Cl Eg) [facility](Fam alan [facility] Cl Eg) TELE CONSULT [id number] RTC TO DISCUSS LABS HARVEY JACKSON 07/19 Referred for Appointment [facility](F amily Health [facility] Eg) [facility](Obs tetrics/G ynecology Cl Eg) OUTPATIENT [id number] 27WKS OB APPT GRAZYNA LEAL 07/27 Released w/o Limitations [employer] [facility](O bstetri cs/Gyne cology Cl Eg) [facility] [facility](Obs tetrics/G ynecology Cl Eg) TELE CONSULT [id number] OB- MARISOL Mann 07/30 Referred for Appointment [facility](O bstetri cs/Gyne cology Cl Eg) [employer] [facility](Fam al[facility] Eg) OUTPATIENT [id number] F/U HIGH CHOLEST NAT... SANDY ANT TORREZ 07/31 Released w/o Limitations [employer] [facility](F amily Health [facility] Eg) [employer] [facility](Fam al[facility] Eg) TELE CONSULT [id number] RTC TO DISCUSS LABS HARVEY JACKSON 08/10 Referred for Appointment [facility](F amily Health [facility] Cl Eg) [employer] [facility](Fam al[facility] Eg) OUTPATIENT [id number] cholest nat... jls ANT TORREZ 08/20 Released w/o Limitations [employer] [facility](F amily Health [facility] Cl Eg) [employer] [facility](Obs tetrics/G ynecology Cl Eg) OUTPATIENT [id number] 31 weeks GRAZYNA LEAL 08/24 Released w/o Limitations [employer] [facility](O bstetri cs/Gyne cology Cl Eg) [employer] [facility](Obs tetrics/G ynecology Cl Eg) OUTPATIENT [id number] 34 weeks GRAZYNA Acosta 09/06 Released w/o Limitations [employer] [facility](O bstetri cs/Gyne cology Cl Eg) [employer] [facility](Fam alan [facility] Cl Eg) OUTPATIENT [id number] RT FOOT PAIN ANT TORREZ 09/10 Released w/o Limitations [employer] [facility](F amily Health [facility] Cl Eg) [employer] [facility](Obs tetrics/G ynecology Cl Eg) OUTPATIENT [id number] ob fu...35 weeks. GRAZYNA LEAL 09/18 Released w/o Limitations [employer] [facility](O bstetri cs/Gyne cology Cl Eg) [facility](Obs tetrics/G ynecology Cl Eg) OUTPATIENT [id number] 35.3 weeks GRAZYNA LEAL 09/26 Released w/o Limitations [employer] [facility](O bstetri cs/Gyne cology Cl Eg) [facility](Obs tetrics/G ynecology Cl Eg) OUTPATIENT [id number] 37.3 weeks GRAZYNA LEAL 10/03 Released w/o Limitations [facility](O bstetri cs/Gyne cology Cl Eg) [facility](Obs tetrics/G ynecology Cl Eg) OUTPATIENT [id number] 38.4 weeks GRAZYNA LEAL 10/12 Released w/o Limitations [facility](O bstetri cs/Gyne cology Cl Eg) [facility](Obs tetrics/G ynecology Cl Eg) OUTPATIENT [id number] 39.6 weeks GRAZYNA LEAL 10/19 Released w/o Limitations [facility] [facility](O bstetri cs/Gyne cology Cl Eg) [facility](Obs tetrics/G ynecology Cl Eg) TELE CONSULT [id number] RESCHED ULE APPT [place] SEGAL A 10/[address] [facility](O bstetri cs/Gyne cology Cl Eg) [facility](Obs tetrics/G ynecology Cl Eg) OUTPATIENT [id number] 40wks ob NIMISHA GONSALVES I 10/22 Released w/o Limitations [facility](O bstetri cs/Gyne cology Cl Eg) [facility](Obs tetrics/G ynecology Cl Eg) TELE CONSULT [id number] HALF DAYS [place] CELAYA A 10/[address] [facility](O bstetri cs/Gyne cology Cl Eg) [facility] DIRECT TO [facility] FROM OTHER THAN ER OR [facility] [id number] NIMISHA GONSALVES I 10/27 RETURNED TO DUTY [facility](Obs tetrics/G ynecology Cl Eg) TELE CONSULT [id number] REQUEST FOR F/U APPT/ 2 WKS POST NAZIA SHAVER A 11/05 Referred for Appointment [employer](O bstetri cs/Gyne cology Cl Eg) [facility](Obs tetrics/G ynecology Cl Eg) OUTPATIENT [id number] 6wks pp CHANG SHEPHERD 12/10 Released w/o Limitations [employer](O bstetri cs/Gyne cology Cl Eg) [facility](Fam al[facility] Cl Eg) OUTPATIENT [id number] LUMP ON SIDE OF FACE NEAR EAR.... ANT MILLAN 01/14 Released w/o Limitations [facility](F amily Health [facility]or Cl Eg) [facility](Fam alan Health [facility] Cl Eg) TELE CONSULT [id number] REQUEST CALL BACK/PT IN EXTREME PAIN HARVEY JACKSON 01/15 Referred for Appointment [facility](F amily Health [facility]or Cl Eg) [facility]([place] laryngolo EG) OUTPATIENT [id number] Inflamm ation of ear NIVIA RENTERIA A 01/15 Released w/o Limitations [facility](O tolaryn golo EG) [facility]([place] laryngolo EG) OUTPATIENT [id number] FU CYST/DE M NIVIA RENTERIA A 01/17 Released w/o Limitations [facility](O tolaryn golo EG) [facility]([place] laryngolo EG) OUTPATIENT [id number] FU Ct/ TC NIVIA RENTERIA A 02/11 Released w/o Limitations [facility](O tolaryn golo EG) [facility] [facility] [place]) TELE CONSULT [id number] new pt SID DEUTSCH 02/[address] [facility]( [facility] [place]) [facility]([employer] [facility] [place]) TELE CONSULT [id number] Pt cancele d SID DEUTSCH 02/[address] [facility]( [facility] [place]) [facility]([place] laryngolo EG) OUTPATIENT [id number] PREOP EXCISIO N PREAURI CULAR PIT 2 NOV/ NIVIA RENTERIA A 02/21 Released w/o Limitations [facility](O tolaryn golo EG) [facility]([place] laryngolo EG) OUTPATIENT [id number] f/u surgery NIVIA RENTERIA A 03/04 Released w/o Limitations [facility](O tolaryn golo EG) [facility] E) OUTPATIENT [id number] wrist pain... ......j ANT Heaton A 04/03 Released w/o Limitations [facility](F amily Medicin e Clinic E) [facility](Obs tetrics/G ynecology Cl Eg) TELE CONSULT [id number] Letter mailed JENNIFER STEPHANIE A 04/15 Referred for Appointment [facility](O bstetri cs/Gyne cology Cl Eg) [facility](Obs tetrics/G ynecology Cl Eg) TELE CONSULT [id number] RETURNI NG CALL JENNIFER STEPHANIE A 06/18 Referred for Appointment [facility](O bstetri cs/Gyne cology Cl Eg) [facility](Obs tetrics/G ynecology Cl Eg) TELE CONSULT [id number] pt called wants her Preg test results .. [place] SEGAL A 07/[address] [facility](O bstetri cs/Gyne cology Cl Eg) [facility](Obs tetrics/G ynecology Cl Eg) TELE CONSULT [id number] resched rick appt NEGAR KEENE 07/[address] [facility](O bstetri cs/Gyne cology Cl Eg) [facility](Obs tetrics/G ynecology Cl Eg) OUTPATIENT [id number] NOB 14 weeks appt CHANG SHEPHERD 08/02 Released w/o Limitations [facility](O bstetri cs/Gyne cology Cl Eg) [facility](Obs tetrics/G ynecology Cl Eg) OUTPATIENT [id number] WKS OB SYLVIE HARDIN V 08/23 Released w/o Limitations [facility](O bstetri cs/Gyne cology Cl Eg) [facility](Obs tetrics/G ynecology Cl Eg) OUTPATIENT [id number] 16wks.. .colpo. .. LILLY AVILA 09/24 Released w/o Limitations [facility](O bstetri cs/Gyne cology Cl Eg) [facility](Obs tetrics/G ynecology Cl Eg) TELE CONSULT [id number] pt 18 wks, wnts to know does she nd an U/S appt? RICCARDO CAMPOS 10/[address] [facility](O bstetri cs/Gyne cology Cl Eg) [facility](Obs tetrics/G ynecology Cl Eg) OUTPATIENT [id number] 20 weeks GRAZYNA Acosta 10/21 Released w/o Limitations [facility](O bstetri cs/Gyne cology Cl Eg) [facility](Obs tetrics/G ynecology Cl Eg) OUTPATIENT [id number] 21WK OB GRAZYNA LEAL 11/08 Released w/o Limitations [facility](O bstetri cs/Gyne cology Cl Eg) [facility] Group(Phy sical Therapy 0024) OUTPATIENT [id number] SCIATIC BARON JIMENEZ 11/12 Released w/o Limitations [facility](P hysical Therapy 0024) [facility](Obs tetrics/G ynecology Cl Eg) TELE CONSULT [id number] r/s appt [place] SEGAL 12/[address] [facility](O bstetri cs/Gyne cology Cl Eg) [facility](Obs tetrics/G ynecology Cl Eg) OUTPATIENT [id number] 27 wks...GABO KEITA 12/20 Released w/o Limitations [facility](O bstetri cs/Gyne cology Cl Eg) [facility](Obs tetrics/G ynecology Cl Eg) TELE CONSULT [id number] pelvic pain RICCARDO CAMPOS 12/[address] [facility](O bstetri cs/Gyne cology Cl Eg) [facility](Obs tetrics/G ynecology Cl Eg) OUTPATIENT [id number] 32WK OB GAMAL, MARIO A 01/15 Released w/o Limitations [facility](O bstetri cs/Gyne cology Cl Eg) [facility](Obs tetrics/G ynecology Cl Eg) TELE CONSULT [id number] Rx Renewal KENDRA VERONICA 01/[address] [facility](O bstetri cs/Gyne cology Cl Eg) [facility](Obs tetrics/G ynecology Cl Eg) OUTPATIENT [id number] ob..36 weeks. GABO NORRSI 02/12 Released w/o Limitations [facility](O bstetri cs/Gyne cology Cl Eg) [facility](Obs tetrics/G ynecology Cl Eg) OUTPATIENT [id number] 38wks GRAZYNA Acosta 02/25 Released w/o Limitations [facility](O bstetri cs/Gyne cology Cl Eg) [facility](Obs tetrics/G ynecology Cl Eg) TELE CONSULT [id number] PT IS DUE NEXT WEEK and wants to know if she can go to half days?? [place] SEGAL A 03/[address] [facility](O bstetri cs/Gyne cology Cl Eg) [facility](Obs tetrics/G ynecology Cl Eg) OUTPATIENT [id number] 39wks GIANFRANCO LUCERO 03/06 Released w/o Limitations [facility](O bstetri cs/Gyne cology Cl Eg) [facility] DIRECT TO [facility] FROM OTHER THAN ER OR [facility] [id number] JEFFRY HALLMAN 03/07 RETURNED TO DUTY [facility](Obs tetrics/G ynecology Cl Eg) OUTPATIENT [id number] week check up....6 weeks was dec25 KENDRA VERONICA 05/06 Released w/o Limitations [facility](O bstetri cs/Gyne cology Cl Eg) [facility](Fam [facility] Health OP Cl Eg) OUTPATIENT [id number] NORMAL ROUTINE HISTORY AND PHYSICA L - POSTPAR SCOOBY QAMAR WALLACE 05/16 Released w/o Limitations [facility] Group(F [facility] Health BHOP Cl Eg) [facility](Obs tetrics/G ynecology Cl Eg) TELE CONSULT [id number] Results and Plan of Care STEPHANIE RODRIGUEZ Iram 06/12 Referred for Appointment [facility] Group(O bstetri cs/Gyne cology Cl Eg) [facility](Obs tetrics/G ynecology Cl Eg) OUTPATIENT [id number] IUD inserti on, woo JEREMÍASDEMETRIUSKENDRA Myriam 06/18 Released w/o Limitations [facility](O bstetri cs/Gyne cology Cl Eg) [facility](Obs tetrics/G ynecology Cl Eg) TELE CONSULT [id number] Notes Entered by: SEGUN COBIAN I 07 Jul 2011 1254 ------- ------- ------- ------- -- request medicat ion refill [place] SEGAL 07/[address] [facility](O bstetri cs/Gyne cology Cl Eg) [facility](Obs tetrics/G ynecology Cl Eg) TELE CONSULT [id number] Notes Entered by: SEGUN COBIAN I 15 Jul 2011 1545 ------- ------- ------- ------- -- request to resched ule appt [place] SEGAL 07/[address] [facility](O bstetri cs/Gyne cology Cl Eg) [facility] Health PHA Cell) OUTPATIENT [id number] Notes Entered by: ARIANE EARL P 05 Sep 2011 1158 ------- ------- ------- ------- -- PHA STANDAERT, LINDA B 09/04 Released w/o Limitations [employer](P ublic Health PHA Cell) [employer](Obs tetrics/G ynecology Cl Eg) TELE CONSULT [id number] Notes Entered by: SEGUN COBIAN I 10 Oct 2011 0853 ------- ------- ------- ------- -- request resched VAMSI Soliz 10/09 Referred for Appointment [employer] [facility](O bstetri cs/Gyne cology Cl Eg) [employer] [facility](Obs tetrics/G ynecology Cl Eg) OUTPATIENT [id number] CHANG Khanna 10/13 Released w/o Limitations [employer](O bstetri cs/Gyne cology Cl Eg) [facility] [facility](Obs tetrics/G ynecology Cl Eg) TELE CONSULT [id number] Notes Entered by: STEPHANIE SAUNDERS 30 Oct 2011 0913 ------- ------- ------- ------- -- Results & Plan of Care STEPHANIE RODRIGUEZ 10/29 Referred for Appointment [employer](O bstetri cs/Gyne cology Cl Eg) [facility] [facility]) OUTPATIENT [id number] DEPRESS ION/MED REFILL/ OK TO BOOK PER PATRICIA BURTON 11/06 Released w/o Limitations [employer](F amily Medicin e Clinic E) [employer](Obs tetrics/G ynecology Cl Eg) OUTPATIENT [id number] Notes Entered by: STEPHANIE RODRIGUEZ 21 Nov 2011 1304 ------- ------- ------- ------- -- Krystlem SELENA Quiñones 11/20 Released w/o Limitations [employer](O bstetri cs/Gyne cology Cl Eg) [employer] [facility] [employer]([facility]) OUTPATIENT [id number] Notes Entered by: ILYA MARR 24 Nov 2011 1310 ------- ------- ------- ------- -- LUIS testing ILYA MARR 11/23 Released w/o Limitations [facility]( [facility] [place]) [employer](War rior Operation al Medicine A) OUTPATIENT [id number] dizzine ss...JOSEFINA Watson 12/07 Released w/o Limitations [facility] Group(W arrior Operati onal Medicin e A) [facility](Dep loyment [facility] Assessmen t E[facility]) OUTPATIENT [id number] RYAN 1 RADHA KHAN 12/16 Released w/o Limitations [facility](D eployme nt [facility] Assessm ent Egl) Theater Facility OUTPATIENT [id number] Theater Provider 03/22 Released w/o Limitations [facility] OUTPATIENT [id number] Theater Provider 04/05 Released w/o Limitations [facility] OUTPATIENT [id number] Theater Provider 06/04 Released w/o Limitations [facility] OUTPATIENT [id number] Theater Provider 06/09 Released w/o Limitations [facility] Facility OUTPATIENT [id number] Theater Provider 08/11 Released w/o Limitations [facility] Facility OUTPATIENT [id number] Theater Provider 08/24 Released w/o Limitations Theater Facilit y [facility](Dep loyment [facility] Assessmen t Egl) OUTPATIENT [id number] Notes Entered by: Conner AMADO 23 Sep 2012 1434 ------- ------- ------- ------- -- Post Deploym ent Medical Process ing RADHA KHAN 09/23 Released w/o Limitations [facility](D eployme nt [facility] Assessm ent Egl) 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 in [facility]) TELE CONSULT [id number] Notes Entered by: MYLES ROMERO 30 Nov 2012 0953 ------- ------- ------- ------- -- Lore. ..needs note from HARVEY Mccoy 11/30 Referred for Appointment [employer] [facility](E gl[facility] ) [employer](Obs tetrics/G ynecology Cl Eg) OUTPATIENT [id number] Estuardo MASSEY LENORA MAJ 12/06 Released w/o Limitations [facility](O bstetri cs/Gyne cology Cl Eg) [facility](Obs tetrics/G ynecology Cl Eg) TELE CONSULT [id number] Notes Entered by: PILY VALERA 14 Dec 2012 0927 ------- ------- ------- ------- -- HCG QL results STEPHANIE RODRIGUEZ 12/14 [employer](O bstetri cs/Gyne cology Cl Eg) [facility](Dep loyment th Assessmen t Egl) OUTPATIENT [id number] DAWN 3 RADHA KHAN 12/21 Released w/o Limitations [facility](D eployme nt [facility] Assessm ent Egl) [facility] Group(Ernie matology EG) OUTPATIENT [id number] douglas with PILO Garcia *INACTIVE* 01/03 Released w/o Limitations [facility](D ermatol ogy EG) [employer](Pub lic Health PHA Cell) OUTPATIENT [id number] QING ENCARNACION 01/05 Released w/o Limitations [employer](P ublic Health PHA Cell) [employer](E[facility] in [facility]) TELE CONSULT [id number] Notes Entered by: TIGRE VILLARREAL 10 Mar 2013 1048 ------- ------- ------- ------- -- HARVEY Dominguez 03/10 Referred for Appointment [employer](E glichristian [facility] ) [employer]([facility] Team C AD/Non-AD ) OUTPATIENT [id number] QING Alvarado 08/26 Released w/o Limitations [employer]([facility] Team C AD/Non- AD) [employer](Obs tetrics/G ynecology Cl Eg) OUTPATIENT [id number] WWE/PATRICIA WILLIAM 12/09 Released w/o Limitations [employer](O bstetri cs/Gyne cology Cl Eg) [employer](Obs tetrics/G ynecology Cl Eg) TELE CONSULT [id number] Notes Entered by: STEPHANIE RODRIGUEZ 12 Jan 2014 1035 ------- ------- ------- ------- -- Results and Plan of Care STEPHANIE RODRIGUEZ 01/12 Referred for Appointment [employer](O bstetri cs/Gyne cology Cl Eg) [employer](Obs tetrics/G ynecology Cl Eg) TELE CONSULT [id number] Notes Entered by: STEPHANIE RODRIGUEZ 16 Nov 2014 1356 ------- ------- ------- ------- -- Keyur hernandez cancer screeni ng STEPHANIE RODRIGUEZ 11/16 Referred for Appointment [employer] [facility](O bstetri cs/Gyne cology Cl Eg) [employer](Tyn haylie [facility] Team B) OUTPATIENT [id number] WILL Epstein 09/04 Released w/o Limitations [employer](Katie jensen [facility] Team B) [employer]([facility]) OUTPATIENT [id number] WWE - Breast Lump discove red [id number] ZOË TIERNEY 11/26 Released w/o Limitations [employer]([facility]) [employer]([facility]) OUTPATIENT [id number] 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 ZOË TIERNEY 04/11 Released w/o Limitations [employer]([facility]) [employer]([facility]) TELE CONSULT [id number] Notes Entered by: JOEY RIOS 11 Apr 2016 1516 ------- ------- ------- ------- -- Referra l for tubal ligatio n JOEY RIOS 04/11 [employer]([facility]) [facility] [employer](Ref erral Managemen t Clinic) TELE CONSULT [id number] Notes Entered by: LORENA SAENZ 24 Jun 2016 1212 ------- ------- ------- ------- -- Network Results - 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 Team C AD/Non-AD ) TELE CONSULT [id number] Notes Entered by: Price AMADO 22 Nov 2018 0925 ------- ------- ------- ------- -- TRIAGE MICHEL MORENO 11/22 Referred for Appointment [facility] Team C AD/Non- AD) [address] [place] [address]([facility] Team C AD/Non-AD ) OUTPATIENT [id number] COUGH DORETHA ALICEA 12/06 Released w/o Limitations [facility] Team C AD/Non- AD) [address] [place] [address]([facility] Team C AD/Non-AD ) OUTPATIENT [id number] Bad cough. GISELLE ARCE 12/30 Released w/o Limitations [facility] Medical [facility] Team C AD/Non- AD) [address] [place] [address]([facility] Team C AD/Non-AD ) TELE CONSULT [id number] Notes Entered by: Myriam COTTON 17 Jan 2019 1520 ------- ------- ------- ------- -- APPT: 06SEP APPT/ST ILL HAS COUGH/O N MEDS MICHEL MORENO 01/17 Referred for Appointment [facility] Team C AD/Non- AD) [address] [place] [address]([facility] Team C AD/Non-AD ) OUTPATIENT [id number] discuss cough GISELLE ARCE 01/19 Released w/o Limitations [facility] Team C AD/Non- AD) [address] [place] [address] Group(Opt ometry Cl EG) OUTPATIENT [id number] ANNUAL EYE EXAM JODI HALEY 05/11 Released w/o Limitations [address] [place] [address](O ptometr y Cl EG) [address] [place] [address] Group([facility] Team C AD/Non-AD ) TELE CONSULT [id number] Notes Entered by: SEGUN COBIAN I 12 Aug 2019 1108 ------- ------- ------- ------- -- TRIAGE/ NO COVID EXPOSUR E/ COUGH/S HORTNES S OF BREATH PRIYANKA MORENO 08/11 Referred for Appointment [facility] Team C AD/Non- AD) [facility]) OUTPATIENT [id number] COCHRAN, cough, sore throat, sob w jennifer , BLANKA HAWKINS 08/11 Released with Work/Duty Limitations [facility]) [facility]) OUTPATIENT [id number] [employer] good# [id number] MIRTHA ARCE 08/14 Released w/o Limitations [facility] Group([facility]) [facility] Group([facility]) OUTPATIENT [id number] Notes Entered by: SERENE SHARP 17 Aug 2019 1341 ------- ------- ------- ------- -- COVID-1 9 ALEENA OHARA 08/16 Released w/o Limitations [facility]) [facility] Team C AD/Non-AD ) TELE CONSULT [id number] Notes Entered by: ANNETTE ROMERO 05 Sep 2019 1105 ------- ------- ------- ------- -- PCM-Spa rks REquest ing antidep ressant s PRIYANKA MORENO 09/04 Referred for Appointment [employer]([facility] Team C AD/Non- AD) [facility] Team U AD/Non-AD ) OUTPATIENT [id number] discuss restart ing antidpr essant DORETHA MONTGOMERY 09/04 Released w/o Limitations [facility] Team U AD/Non- AD) [facility] Group(War rior Operation al Medicine A) TELE CONSULT [id number] Notes Entered by: Price AMADO 01 Oct 2020 0956 ------- ------- ------- ------- -- TRIAGE/ WRIST PAIN: MARCOChristian JillianCLAUDIA 10/01 Referred for Appointment [employer](W arrior Operati onal Medicin e A) [employer](War rior Operation al Medicine A) OUTPATIENT [id number] F2f. left wrist pain after falling on it 1 week ago MARKUS BRISCOE 10/01 Released w/o Limitations [employer](W arrior Operati onal Medicin e A) [employer](Occ upat Ther EG) OUTPATIENT [id number] Pain in left wrist CROW SCOTT 10/05 Released w/o Limitations [employer](O ccupat Ther EG) [employer](Occ upat Ther EG) OUTPATIENT [id number] CROW SCOTT 10/22 Released w/o Limitations [employer](O ccupat Ther EG) [employer](Occ upat Ther EG) OUTPATIENT [id number] CROW SCOTT 11/06 Released w/o Limitations [employer](O ccupat Ther EG) [employer](War rior_Oper _Med_Cl_T eam A AD) TELE CONSULT [id number] COVID Clinic- [employer] PETER HUDSON 11/15 Released to Self Care [employer](W arrior_ Oper_Me d_Cl_Te am A AD) [employer](Opt ometry Cl EG) OUTPATIENT [id number] ROUT EYE EXAM..F 2F MICHAEL WATKINS 12/25 Released w/o Limitations [employer](O ptometr y Cl EG) [employer]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(Bas e Oper Med Cl Eg) OUTPATIENT [id number] Title 10 -301 MARINE Bernal 06/28 Released w/o Limitations [facility](B ase Oper Med Cl Eg) [facility] Team A) TELE CONSULT [id number] Notes Entered by: FRANCINE STOREY 15 Jul 2021 1022 ------- ------- ------- ------- -- Positiv e PCR Test CALLUMEMIram Hernandez 07/15 [facility] Team A) [facility](War rior Operation al Medicine A) TELE CONSULT [id number] Notes Entered by: ELDER WHITTAKER 29 Jul 2021 0835 ------- ------- ------- ------- -- SYMPTOM BASED / TRIAGE TITI MOSQUEDA 07/[address] [facility](W arrior Operati onal Medicin e A) [facility](War rior Operation al Medicine A) OUTPATIENT [id number] F2F- PERSIST ENT COUGH POST COVID TITI MOSQUEDA 07/30 Released w/o Limitations [facility](W arrior Operati onal Medicin e A) [facility](Obs tetrics/G ynecology Eg) OUTPATIENT [id number] Co-test CHANG SHEPHERD 12/26 Released w/o Limitations [address] [place] [address](O bstetri cs/Gyne cology Eg) [facility] rashid Recurring [id number] Other interve rtebral disc degener ation, lumbar region, Segment al and somatic dysfunc tion of lumbar region, Segment al and somatic dysfunc tion of sacral region, Segment al and somatic dysfunc tion of thoraci c region, Segment al and somatic dysfunc tion of pelvic region MARKUS WATSON 05/12 Discharge Disposition: Home or Self Care -A F-H-96t h [facility] [place] -- [facility] rashid Between Visit [id number] 06/10 Discharge Disposition: Home or Self Care 2C-A F-H-96t h [facility] [place] -AF- [facility] rashid Between Visit [id number] 06/10 Discharge Disposition: Home or Self Care 2C-A F-H-96t h [facility] [place] 2C-AF- [facility] [id number] BIANCA BUSH 06/19 Discharge Disposition: Home or Self Care 2C-A F-H-96t h [facility] [place] [id number] [facility] Dental [id number] JOSEFINA DELGADOOND 02/18 Discharge Disposition: Home or Self Care [id number] [facility] Procedures Combined list of: 1) Procedures from Department of Veterans Affairs facilities going back up to thelast 18 months, not all VA non-surgical procedures are included; 2) All procedures from the Department of Defense facilities. Procedure Procedure Type Code Date Perfomer Comments Sour e COLOR VISION EXAMINATION, EXTENDED, EG, ANOMALOSCOPE OR EQUIVALENT 018 [facility] PURE TONE AUDIOMETRY (THRESHOLD), AUTOMATED; AIR ONLY 018 [facility] PSYCHIATRIC EVALUATION OF HOSPITAL RECORDS, OTHER PSYCHIATRIC REPORTS, PSYCHOMETRIC AND/OR PROJECTIVE TESTS, AND OTHER ACCUMULATED DATA FOR MEDICALDIAGNOSTIC PURPOSES 017 [facility] TELE ASSESS & MGT SRV PROV QUAL NONPHYS HLTH CARE PRO TO EST PAT,PARENT,GUARD NOT ORIG REL ASSESS & MGT SRV PROV W/IN PREV 7 DAYS NOR LEAD ASSESS & MGT SRV/PX W/IN NXT 24H/SOON APT; 11-20 MIN MED DIS 022 [facility] EDUCATIONAL SUPPLIES, SUCH BOOKS, TAPES, AND PAMPHLETS, FOR THE PATIENT'S EDUCATION AT COST TO PHYSICIAN OR OTHER QUALIFIED HEALTH SKINNING MACHINE FEEDER 003 DoD SCREENING PAP[place]OLAOU SMEAR; OBTAINING, PREPARING AND CONVEYANCE OF CERVICAL OR VAGINAL SMEAR TO LABORATORY 008 DoD FITTING OF SPECTACLES, EXCEPT FOR APHAKIA; MONOFOCAL [facility] SCREENING [place]AOU SMEAR; OBTAINING, PREPARING AND CONVEYANCE OF CERVICAL OR VAGINAL SMEAR TO LABORATORY [facility] INDIVIDUAL PSYCHOTHERAPY, INSIGHT ORIENTED, BEHAVIOR MODIFYING AND/OR SUPPORTIVE, IN AN OFFICE OR OUTPATIENT FACILITY, APPROXIMATELY 20 TO 30 MINUTES [id number] WITH THE PATIENT [facility] COLPOSCOPY OF THE CERVIX INCLUDING UPPER/ADJACENT VAGINA; WITH BIOPSY(S) OF THE CERVIX [facility] ENDOCERVICAL CURETTAGE (NOT DONE PART OF A DILATION AND CURETTAGE) [facility] INDIVIDUAL PSYCHOTHERAPY, INSIGHT ORIENTED, BEHAVIOR MODIFYING AND/OR SUPPORTIVE, IN AN OFFICE OR OUTPATIENT FACILITY, APPROXIMATELY 45 TO 50 MINUTES [id number] WITH THE PATIENT [facility] SCREENING [place]AP[place]OLAOU SMEAR; OBTAINING, PREPARING AND CONVEYANCE OF CERVICAL OR VAGINAL SMEAR TO LABORATORY [facility] INDIVIDUAL PSYCHOTHERAPY, INSIGHT ORIENTED, BEHAVIOR MODIFYING AND/OR SUPPORTIVE, IN AN OFFICE OR OUTPATIENT FACILITY, APPROXIMATELY 20 TO 30 MINUTES [id number] WITH THE PATIENT [facility] SELF-CARE/HOME MANAGMENT TRAIN (EG,ACT OF DAILY LIVING (ADL) &COMPENSAT TRAIN,MEAL PREPARATION,SAFETY PROCS,AND INSTRUCT IN USE OF ASST TECHNOLOGY DEV/ADPT EQUIP) DIR ONE-ON-ONE CONT,EA 15 MINUTES [facility] INDIVIDUAL PSYCHOTHERAPY, INSIGHT ORIENTED, BEHAVIOR MODIFYING AND/OR SUPPORTIVE, IN AN OFFICE OR OUTPATIENT FACILITY, APPROXIMATELY 20 TO 30 MINUTES [id number] WITH THE PATIENT [facility] THERAPEUTIC PROCEDURE, 1 OR MORE AREAS, EACH 15 MINUTES; THERAPEUTIC EXERCISES TO DEVELOP STRENGTH AND ENDURANCE, RANGE OF MOTION AND FLEXIBILITY [facility] MANUAL THERAPY TECHNIQUES (EG, MOBILIZATION/ MANIPULATION, MANUAL LYMPHATIC DRAINAGE, MANUAL TRACTION), 1 OR MORE REGIONS, EACH 15 MINUTES [facility] OPHTHALMOLOGICAL SERVICES: MEDICAL EXAMINATION AND EVALUATION, WITH INITIATION OR CONTINUATION OF DIAGNOSTIC AND TREATMENT PROGRAM; INTERMEDIATE, ESTABLISHED PATIENT [facility] INDIVIDUAL PSYCHOTHERAPY, INSIGHT ORIENTED, BEHAVIOR MODIFYING AND/OR SUPPORTIVE, IN AN OFFICE OR OUTPATIENT FACILITY, APPROXIMATELY 45 TO 50 MINUTES [id number] WITH THE PATIENT [facility] INDIVIDUAL PSYCHOTHERAPY, INSIGHT ORIENTED, BEHAVIOR MODIFYING AND/OR SUPPORTIVE, IN AN OFFICE OR OUTPATIENT FACILITY, APPROXIMATELY 45 TO 50 MINUTES [id number] WITH THE PATIENT [facility] PSYCHIATRIC DIAGNOSTIC INTERVIEW EXAMINATION [facility] REMOVAL IMPACTED CERUMEN REQUIRING INSTRUMENTATION, UNILATERAL [facility] REPAIR OF OTHER CURRENT OBSTETRIC LACERATION [facility] REPAIR OF CURRENT OBSTETRIC LACERATION OF BLADDER AND URETHRA [facility] OTHER ARTIFICIAL RUPTURE OF MEMBRANES [facility] OSTEOPATHIC MANIPULATIVE TREATMENT (OMT); 1-2 BODY REGIONS INVOLVED [facility] OPHTHALMOLOGICAL SERVICES: MEDICAL EXAMINATION AND EVALUATION WITH INITIATION OF DIAGNOSTIC AND TREATMENT PROGRAM; COMPREHENSIVE, NEW PATIENT, 1 OR MORE VISITS [facility] SCREENING PAP[place]ICOLAOU SMEAR; OBTAINING, PREPARING AND CONVEYANCE OF CERVICAL OR VAGINAL SMEAR TO LABORATORY [facility] ADMINISTRATION OF PATIENT-FOCUSED HEALTH RISK ASSESSMENT INSTRUMENT (EG, HEALTH HAZARD APPRAISAL) WITH SCORING AND DOCUMENTATION, PER STANDARDIZED INSTRUMENT [facility] PURE TONE AUDIOMETRY (THRESHOLD), AUTOMATED; AIR ONLY [facility] FITTING OF SPECTACLES, EXCEPT FOR APHAKIA; MONOFOCAL [facility] APPLICATION OF A MODALITY TO 1 OR MORE AREAS; IONTOPHORESIS, EACH 15 MINUTES [facility] APPLICATION OF A MODALITY TO 1 OR MORE AREAS; IONTOPHORESIS, EACH 15 MINUTES [facility] WRIST HAND ORTHOSIS, WITHOUT JOINTS, MAY INCLUDE SOFT INTERFACE, STRAPS, CUSTOM FABRICATED, INCLUDES FITTING AND ADJUSTMENT [facility] TELE ASSESS & MGT SRV PROV QUAL NONPHYS HLTH CARE PRO TO EST PAT,PARENT,GUARD NOT ORIG REL ASSESS & MGT SRV PROV W/IN PREV 7 DAYS NOR LEAD ASSESS & MGT SRV/PX W/IN NXT 24 HR/SOON APT;5-10 MIN MED DIS [facility] PSYCHIATRIC EVALUATION OF HOSPITAL RECORDS, OTHER PSYCHIATRIC REPORTS, PSYCHOMETRIC AND/OR PROJECTIVE TESTS, AND OTHER ACCUMULATED DATA FOR MEDICALDIAGNOSTIC PURPOSES [facility] BRIEF EMOTIONAL/BEHAVIORAL ASSESSMENT (EG, DEPRESSION INVENTORY, ATTENTION-DEFICIT/HYP ERACTIVITY DISORDER [ADHD] SCALE), WITH SCORING AND DOCUMENTATION, PER STANDARDIZED INSTRUMENT DoD WAIVER SERVICES; NOT OTHERWISE SPECIFIED (NOS) Do[facility] WAIVER SERVICES; NOT OTHERWISE SPECIFIED (NOS) DoD TELE ASSESS & MGT SRV PROV QUAL NONPHYS HLTH CARE PRO TO EST PAT,PARENT,GUARD NOT ORIG REL ASSESS & MGT SRV PROV W/IN PREV 7 DAYS NOR LEAD ASSESS & MGT SRV/PX W/IN NXT 24 HR/SOON APT;5-10 MIN MED DIS Do[facility] WAIVER SERVICES; NOT OTHERWISE SPECIFIED (NOS) DoD TELE ASSESS & MGT SRV PROV QUAL NONPHYS HLTH CARE PRO TO EST PAT,PARENT,GUARD NOT ORIG REL ASSESS & MGT SRV PROV W/IN PREV 7 DAYS NOR LEAD ASSESS & MGT SRV/PX W/IN NXT 24 HR/SOON APT;5-10 MIN MED DIS DoD DETERMINATION OF REFRACTIVE STATE DoD ALBUTEROL, UP TO 2.5 MG AND IPRATROPIUM BROMIDE, UP TO 0.5 MG, FDA-APPROVED FINAL PRODUCT, NON-COMPOUNDED, ADMINISTERED THROUGH DME 019 DoD TELE ASSESS & MGT SRV PROV QUAL NONPHYS HLTH CARE PRO TO EST PAT,PARENT,GUARD NOT ORIG REL ASSESS & MGT SRV PROV W/IN PREV 7 DAYS NOR LEAD ASSESS & MGT SRV/PX W/IN NXT 24 HR/SOON APT;5-10 MIN MED DIS 014 DoD SCREENING PAP[place]ICOLAOU SMEAR; OBTAINING, PREPARING AND CONVEYANCE OF CERVICAL OR VAGINAL SMEAR TO LABORATORY 014 DoD PSYCHOTHERAPY, 60 MINUTES WITH PATIENT 014 DoD SCREENING PAP[place]OLAOU SMEAR; OBTAINING, PREPARING AND CONVEYANCE OF CERVICAL OR VAGINAL SMEAR TO LABORATORY 013 DoD NEUROPSYCHOLOGICAL TESTING (EG, [place] CARD SORTING TEST), ADMINISTERED BY A COMPUTER, WITH QUALIFIED HEALTH SKINNING MACHINE FEEDER INTERPRETATION AND REPORT 012 DoD INSERTION OF INTRAUTERINE DEVICE (IUD) 012 DoD CARE VISIT () 012 DoD OTHER MANUALLY ASSISTED DELIVERY 011 DoD POSTOPERATIVE FOLLOW-UP VISIT, NORMALLY INCLUDED IN THE SURGICAL PACKAGE, INDICATE THAT EVALUATION & MANAGEMENT SERVICE WAS PERFORMED DURING A POSTOPERATIVE PERIOD REASON RELATED ORIGINAL PROCEDURE 011 DoD POSTOPERATIVE FOLLOW-UP VISIT, NORMALLY INCLUDED IN THE SURGICAL PACKAGE, INDICATE THAT EVALUATION & MANAGEMENT SERVICE WAS PERFORMED DURING A POSTOPERATIVE PERIOD REASON RELATED ORIGINAL PROCEDURE [facility] VAGINAL DELIVERY ONLY (WITH OR WITHOUT EPISIOTOMY AND/OR FORCEPS); [facility] SUBSEQ CARE VISIT () [EXCLS:PATIENTS WHO ARE SEEN FOR A CONDITION UNREL TO / CARE (EG,AN UP RESPIR INFECT;PATIENTS SEEN FOR CONSULTATION ONLY,NOT FOR CONT CARE)] 011 [facility] SUBSEQ CARE VISIT () [EXCLS:PATIENTS WHO ARE SEEN FOR A CONDITION UNREL TO / CARE (EG,AN UP RESPIR INFECT;PATIENTS SEEN FOR CONSULTATION ONLY,NOT FOR CONT CARE)] [facility] SUBSEQ CARE VISIT () [EXCLS:PATIENTS WHO ARE SEEN FOR A CONDITION UNREL TO / CARE (EG,AN UP RESPIR INFECT;PATIENTS SEEN FOR CONSULTATION ONLY,NOT FOR CONT CARE)] [facility] SUBSEQ CARE VISIT () [EXCLS:PATIENTS WHO ARE SEEN FOR A CONDITION UNREL TO / CARE (EG,AN UP RESPIR INFECT;PATIENTS SEEN FOR CONSULTATION ONLY,NOT FOR CONT CARE)] 011 [facility] NON-STRESS TEST [facility] SUBSEQ CARE VISIT () [EXCLS:PATIENTS WHO ARE SEEN FOR A CONDITION UNREL TO / CARE (EG,AN UP RESPIR INFECT;PATIENTS SEEN FOR CONSULTATION ONLY,NOT FOR CONT CARE)] 011 [facility] THERAPEUTIC PROCEDURE,1 OR MORE AREAS,EACH 15 MINUTES;NEUROMUSCULAR REEDUCATION OF MOVEMENT,BALANCE,COOR DINATION,KINESTHETIC SENSE,POSTURE,AND/OR PROPRIOCEPTION FOR SITTING AND/OR STANDING ACTIVITIES [facility] SUBSEQ CARE VISIT () [EXCLS:PATIENTS WHO ARE SEEN FOR A CONDITION UNREL TO / CARE (EG,AN UP RESPIR INFECT;PATIENTS SEEN FOR CONSULTATION ONLY,NOT FOR CONT CARE)] 011 [facility] SUBSEQ CARE VISIT () [EXCLS:PATIENTS WHO ARE SEEN FOR A CONDITION UNREL TO / CARE (EG,AN UP RESPIR INFECT;PATIENTS SEEN FOR CONSULTATION ONLY,NOT FOR CONT CARE)] 011 [facility] COLPOSCOPY OF THE CERVIX INCLUDING UPPER/ADJACENT VAGINA; 011 [facility] SUBSEQ CARE VISIT () [EXCLS:PATIENTS WHO ARE SEEN FOR A CONDITION UNREL TO / CARE (EG,AN UP RESPIR INFECT;PATIENTS SEEN FOR CONSULTATION ONLY,NOT FOR CONT CARE)] [facility] ULTRASOUND, UTERUS, REAL TIME WITH IMAGE DOCUMENTATION,TRANSVA GINAL [facility] POSTOPERATIVE FOLLOW-UP VISIT, NORMALLY INCLUDED IN THE SURGICAL PACKAGE, INDICATE THAT EVALUATION & MANAGEMENT SERVICE WAS PERFORMED DURING A POSTOPERATIVE PERIOD REASON RELATED ORIGINAL PROCEDURE [facility] UNLISTED SPECIAL SERVICE, PROCEDURE OR REPORT [facility] INCISION AND DRAINAGE OF ABSCESS (EG, CARBUNCLE, SUPPURATIVE HIDRADENITIS, CUTANEOUS OR SUBCUTANEOUS ABSCESS, CYST, FURUNCLE, OR PARONYCHIA); SIMPLE OR SINGLE [facility] CARE VISIT () [facility] OTHER ARTIFICIAL RUPTURE OF MEMBRANES [facility] POSTOPERATIVE FOLLOW-UP VISIT, NORMALLY INCLUDED IN THE SURGICAL PACKAGE, INDICATE THAT EVALUATION & MANAGEMENT SERVICE WAS PERFORMED DURING A POSTOPERATIVE PERIOD REASON RELATED ORIGINAL PROCEDURE [facility] POSTOPERATIVE FOLLOW-UP VISIT, NORMALLY INCLUDED IN THE SURGICAL PACKAGE, INDICATE THAT EVALUATION & MANAGEMENT SERVICE WAS PERFORMED DURING A POSTOPERATIVE PERIOD REASON RELATED ORIGINAL PROCEDURE [facility] MEDICAL NUTRITION THERAPY; INITIAL ASSESSMENT AND INTERVENTION, INDIVIDUAL, [id number] WITH THE PATIENT, EACH 15 MINUTES [facility] NEURAXIAL LABOR ANALGESIA/ANESTHESIA FOR PLANNED VAGINAL DELIVERY (THIS INCLUDES ANY REPEAT SUBARACHNOID NEEDLE PLACEMENT&DRUG INJECTION &/ ANY NECESSARY REPLACEMENT, AN EPIDURAL CATHETER DUR LABOR) [facility] SUBSEQ CARE VISIT () [EXCLS:PATIENTS WHO ARE SEEN FOR A CONDITION UNREL TO / CARE (EG,AN UP RESPIR INFECT;PATIENTS SEEN FOR CONSULTATION ONLY,NOT FOR CONT CARE)] [facility] SUBSEQ CARE VISIT () [EXCLS:PATIENTS WHO ARE SEEN FOR A CONDITION UNREL TO / CARE (EG,AN UP RESPIR INFECT;PATIENTS SEEN FOR CONSULTATION ONLY,NOT FOR CONT CARE)] [facility] SUBSEQ CARE VISIT () [EXCLS:PATIENTS WHO ARE SEEN FOR A CONDITION UNREL TO / CARE (EG,AN UP RESPIR INFECT;PATIENTS SEEN FOR CONSULTATION ONLY,NOT FOR CONT CARE)] [facility] SUBSEQ CARE VISIT () [EXCLS:PATIENTS WHO ARE SEEN FOR A CONDITION UNREL TO / CARE (EG,AN UP RESPIR INFECT;PATIENTS SEEN FOR CONSULTATION ONLY,NOT FOR CONT CARE)] [facility] SUBSEQ CARE VISIT () [EXCLS:PATIENTS WHO ARE SEEN FOR A CONDITION UNREL TO / CARE (EG,AN UP RESPIR INFECT;PATIENTS SEEN FOR CONSULTATION ONLY,NOT FOR CONT CARE)] [facility] SUBSEQ CARE VISIT () [EXCLS:PATIENTS WHO ARE SEEN FOR A CONDITION UNREL TO / CARE (EG,AN UP RESPIR INFECT;PATIENTS SEEN FOR CONSULTATION ONLY,NOT FOR CONT CARE)] [facility] SUBSEQ CARE VISIT () [EXCLS:PATIENTS WHO ARE SEEN FOR A CONDITION UNREL TO / CARE (EG,AN UP RESPIR INFECT;PATIENTS SEEN FOR CONSULTATION ONLY,NOT FOR CONT CARE)] [facility] SUBSEQ CARE VISIT () [EXCLS:PATIENTS WHO ARE SEEN FOR A CONDITION UNREL TO / CARE (EG,AN UP RESPIR INFECT;PATIENTS SEEN FOR CONSULTATION ONLY,NOT FOR CONT CARE)] DoD FITTING OF SPECTACLES, EXCEPT FOR APHAKIA; MONOFOCAL [facility] SUBSEQ CARE VISIT () [EXCLS:PATIENTS WHO ARE SEEN FOR A CONDITION UNREL TO / CARE (EG,AN UP RESPIR INFECT;PATIENTS SEEN FOR CONSULTATION ONLY,NOT FOR CONT CARE)] [facility] ULTRASOUND, UTERUS, REAL TIME WITH IMAGE DOCUMENTATION,TRANSVA GINAL [facility] ULTRASOUND, UTERUS, REAL TIME WITH IMAGE DOCUMENTATION,TRANSVA GINAL [facility] SUBSEQ CARE VISIT () [EXCLS:PATIENTS WHO ARE SEEN FOR A CONDITION UNREL TO / CARE (EG,AN UP RESPIR INFECT;PATIENTS SEEN FOR CONSULTATION ONLY,NOT FOR CONT CARE)] [facility] INITIAL CARE VISIT (REPORT AT 1ST ENCOUN 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 REPORT ALSO DATE OF VISIT &,IN A SEPARATE FIELD,THE DATE OF THE LAST MENSTRUAL PERIOD) DoD INJECTION, INTRALESIONAL; UP TO AND INCLUDING 7 LESIONS [facility] MEDICAL NUTRITION THERAPY; GROUP (2 OR MORE INDIVIDUAL(S)), EACH 30 MINUTES [facility] POSTOPERATIVE FOLLOW-UP VISIT, NORMALLY INCLUDED IN THE SURGICAL PACKAGE, INDICATE THAT EVALUATION & MANAGEMENT SERVICE WAS PERFORMED DURING A POSTOPERATIVE PERIOD REASON RELATED ORIGINAL PROCEDURE [facility] INCISION AND DRAINAGE OF ABSCESS (EG, CARBUNCLE, SUPPURATIVE HIDRADENITIS, CUTANEOUS OR SUBCUTANEOUS ABSCESS, CYST, FURUNCLE, OR PARONYCHIA); COMPLICATED OR MULTIPLE [facility] Physical Therapy Service Re-Evaluation Physical Therapy Service Re-Evaluation [id number] RASHIDA RODRIGUEZRI L [facility] Phys Therapy Education Self Care Training - Per 15 Minutes Phys Therapy Education Self Care Training - Per 15 Minutes [id number] RASHIDA RODRIGUEZRI L [facility] Psychotherapy Individual Approximately 30 Minutes Psychotherapy Individual Approximately 30 Minutes [id number] 006 ILIR STRATTON [facility] Physical Therapy Service Evaluation Physical Therapy Service Evaluation [id number] JENNIFER RASHIDARI L [facility] Phys Therapy Education Self Care Training - Per 15 Minutes Phys Therapy Education Self Care Training - Per 15 Minutes [id number] MAHAFFEY RASHIDARI L [facility] A isted Exercises For ROM Assisted Exercises [place] ROM [id number] JENNIFER, RHODRI L [facility] Physical Therapy Service Evaluation Physical Therapy Service Evaluation [id number] JENNIFER RASHIDARI L [facility] Phys Therapy Education Self Care Training - Per 15 Minutes Phys Therapy Education Self Care Training - Per 15 Minutes [id number] 006 JENNIFER, RHODRI L [facility] Physical Therapy Mobilization Joint Physical Therapy Mobilization Joint [id number] 006 MAHAFFEY RASHIDARI L [facility] Threshold Audiogram (Pure Tone) Automated Threshold Audiogram (Pure Tone) Automated 0208T 018 MARCO JACKSON [facility] Patient education, not otherwise cla ified, non-physician provider, individual, per se ion 018 MARCO JACKSON [facility] Extensive Color Vision Testing Extensive Color Vision Testing 08556 018 SID RENEE [facility] Screening Test Of Visual Acuity, Quantitative, Bilateral Screening Test Of Visual Acuity, Quantitative, Bilateral 19355 018 SID RENEE Threshold Audiogram (Pure Tone) Threshold Audiogram (Pure Tone) 42114 018 SID RENEE [facility] Psychiatric Diagnostic Evaluation Review of Records and Reports Psychiatric Diagnostic Evaluation Review of Records and Reports 43249 017 SANDER JASON [facility] Non-Physician Phone Call To Patient/Provider Brief (5-10min) Non-Physician Phone Call To Patient/Provider Brief (5-10min) [id number] 014 STEPHANIE RODRIGUEZ [facility] Screening papanicolaou smear; obtaining, preparing and conveyance of cervical or vaginal smear to laboratory 014 PATRICIA PUENTE [facility] Clinical Social Work Individual Outpatient Counseling 75-80 Minutes 014 ASHISH SCHAFFER [facility] Screening papanicolaou smear; obtaining, preparing and conveyance of cervical or vaginal smear to laboratory 013 CHANG SHEPHERD [facility] Psychometric Neuropsych Testing Battery Admin By Computer Psychometric Neuropsych Testing Battery Admin By Computer 22834 012 ILYA MARR [facility] Gynecologic Services Intrauterine Device (IUD) Insertion Gynecologic Services Intrauterine Device (IUD) Insertion 31139 012 KENDRA VERONICA [facility] Obstetrical Services Care Visit Obstetrical Services Care Visit 0503F 012 KENDRA VERONICA [facility] OB Services Antepartum Care Only Subsequent Single Visit OB Services Antepartum Care Only Subsequent Single Visit 0502F 011 GIANFRANCO LUCERO [facility] OB Services Antepartum Care Only Subsequent Single Visit OB Services Antepartum Care Only Subsequent Single Visit 0502F 011 GRAZYNA LEAL [facility] OB Services Antepartum Care Only Subsequent Single Visit OB Services Antepartum Care Only Subsequent Single Visit 050F 011 GABO NORRIS [facility] Non-Stre Test (___ 0,2) Non-Stress Test (___ 0,2) 76782 011 JULIET LEMUS [facility] OB Services Antepartum Care Only Subsequent Single Visit OB Services Antepartum Care Only Subsequent Single Visit 0502F 011 GABO NORRIS [facility] A isted Exercises For ROM Assisted Exercises For ROM 68970 011 BARON JENKINS [facility] Physical Therapy Service Evaluation Physical Therapy Service Evaluation 35126 011 BARON JENKINS [facility] OB Services Antepartum Care Only Subsequent Single Visit OB Services Antepartum Care Only Subsequent Single Visit 0502F 011 GRAZYNA LEAL [facility] Ultrasound Obstetric Limited Evaluation Ultrasound Obstetric Limited Evaluation 44057 011 GRAZYNA LEAL [facility] Ultrasound [place] [address] 011 GRAZYNA LEAL [facility] OB Services Antepartum Care Only Subsequent Single Visit OB Services Antepartum Care Only Subsequent Single Visit 0502F 011 GRAZYNA LEAL [facility] Colposcopy Colposcopy 90556 011 LILLY AVILA [facility] OB Services Antepartum Care Only Subsequent Single Visit OB Services Antepartum Care Only Subsequent Single Visit 0502F 011 SYLVIE HARDIN V [facility] Ultrasound [place] [address] 011 CHANG SHEPHERD [facility] OB Services Antepartum Care Only First Visit, With Report OB Services Antepartum Care Only First Visit, With Report 0500F 011 CHANG SHEPHERD Lesions On Ear Right [place] 010 NIVIA RENTERIA [facility] Postoperative Visit, Without Charge Postoperative Visit, Without Charge 88179 010 NIVIA RENTERIA Incision And Drainage Of Skin Absce , Simple Incision And Drainage Of Skin Abscess, Simple 46863 010 NIVIA RENTERIA timeout was performed according to the universal protocol. 1% lidocaine with 1:100,000 epinephrine was injected around the lesion. A 15-blade was used to open the old vertical scar over the preauricular pit, with egress of several ml's of turbid fluid and squamous debris. A 1/8 inch iodoform gauze wick was placed in the defect and the wound covered by a sterile dressing. She tolerated the procedure well without acute complication. [facility] Obstetrical Services Care Visit Obstetrical Services Care Visit 0503F 010 CHANG SHEPHERD [facility] OB Services Antepartum Care Only Subsequent Single Visit OB Services Antepartum Care Only Subsequent Single Visit 0502F 010 NIMISHA GONSALVES I [facility] OB Services Antepartum Care Only Subsequent Single Visit OB Services Antepartum Care Only Subsequent Single Visit 0502F 010 GABO NORRIS DoD OB Services Antepartum Care Only Subsequent Single Visit OB Services Antepartum Care Only Subsequent Single Visit 0502F 010 GRAZYNA LEAL R DoD OB Services Antepartum Care Only Subsequent Single Visit OB Services Antepartum Care Only Subsequent Single Visit 0502F 010 GRAZYNA LEAL R Cricket OB Services Antepartum Care Only Subsequent Single Visit OB Services Antepartum Care Only Subsequent Single Visit 0502F 010 GRAZYNA LEAL R DoD OB Services Antepartum Care Only Subsequent Single Visit OB Services Antepartum Care Only Subsequent Single Visit 0502F 010 GRAZYNA LEAL R Cricket OB Services Antepartum Care Only Subsequent Single Visit OB Services Antepartum Care Only Subsequent Single Visit 0502F 010 GRAZYNA LEAL R Cricket OB Services Antepartum Care Only Subsequent Single Visit OB Services Antepartum Care Only Subsequent Single Visit 0502F 010 GRAZYNA LEAL R Cricket OB Services Antepartum Care Only Subsequent Single Visit OB Services Antepartum Care Only Subsequent Single Visit 0502F 010 GRAZYNA LEAL Ultrasound [place]Vaginal [place] [address] 010 GRAZYNA LEAL OB Services Antepartum Care Only Subsequent Single Visit OB Services Antepartum Care Only Subsequent Single Visit 0502F 010 GRAZYNA LEAL Ultrasound [place] [address] 010 GRAZYNA LEAL R Cricket OB Services Antepartum Care Only Subsequent Single Visit OB Services Antepartum Care Only Subsequent Single Visit 0502F 010 GRAZYNA LEAL Ultrasound [place] [address] 010 GRAZYNA LEAL OB Services Antepartum Care Only Subsequent Single Visit OB Services Antepartum Care Only Subsequent Single Visit 0502F 010 GRAZYNA LEAL Ultrasound [place] [address] 009 GRAZYNA LEAL OB Services Antepartum Care Only First Visit, With Report OB Services Antepartum Care Only First Visit, With Report [id number] GRAZYNA LEAL Intralesional Injections - Up To Seven Intralesional Injections - Up To Seven [id number] 009 SIM LIN Incision And Drainage Of Skin Absce , Simple Incision And Drainage Of Skin Abscess, Simple 29147 009 SIM LIN [facility] Incision And Drainage Of Skin Absce , Complicated Incision And Drainage Of Skin Abscess, Complicated 74044 009 MARINE MEADE [facility] Screening papanicolaou smear; obtaining, preparing and conveyance of cervical or vaginal smear to laboratory 008 [employer] Screening Test Of Visual Acuity, Quantitative, Bilateral Screening Test Of Visual Acuity, Quantitative, Bilateral 93874 008 JERRY LLANOS [facility] Determination Of Refractive State Determination Of Refractive State 34555 007 TIGRE ODELL Spectacles Services Fitting Monofocal Except For Aphakia Spectacles Services Fitting Monofocal Except For Aphakia 84261 007 TIGRE ODELL Ophthalmological Prior Patient Start Comprehensive Care Ophthalmological Prior Patient Start Comprehensive Care 58223 007 TIGRE ODELL Screening papanicolaou smear; obtaining, preparing and conveyance of cervical or vaginal smear to laboratory 007 [employer] Psychotherapy Individual Approximately 30 Minutes Psychotherapy Individual Approximately 30 Minutes [id number] 007 ILIR STRATTON [facility] Colposcopy Cervix With Biopsy Colposcopy Cervix With Biopsy 73763 006 [employer] Screening papanicolaou smear; obtaining, preparing and conveyance of cervical or vaginal smear to laboratory 006 [employer] Endocervical Curettage (Not D&C) Endocervical Curettage (Not D&C) 99411 006 [employer] Colposcopy Cervix With Biopsy Colposcopy Cervix With Biopsy 15597 006 [employer] Psychotherapy Individual Approximately 45 Minutes Psychotherapy Individual Approximately 45 Minutes 43783 006 ILIR STRATTON [employer] Screening papanicolaou smear; obtaining, preparing and conveyance of cervical or vaginal smear to laboratory 006 [employer] Psychotherapy Individual Approximately 30 Minutes Psychotherapy Individual Approximately 30 Minutes 73933 006 ILIR STRATTON [facility] Ophthalmological Prior Patient Start Comprehensive Care Ophthalmological Prior Patient Start Comprehensive Care 34641 JODI HALEY [facility] Spectacles Services Fitting Monofocal Except For Aphakia Spectacles Services Fitting Monofocal Except For Aphakia 77767 JODI HALEY [facility] Determination Of Refractive State Determination Of Refractive State 38487 JODI HALEY [facility] Non-Physician Phone Call To Patient/Provider Brief (5-10min) Non-Physician Phone Call To Patient/Provider Brief (5-10min) 30608 PRIYANKA MORENO [facility] Waiver services; not otherwise specified (NOS) MIRTHA ARCE [facility] Psychiatric Diagnostic Evaluation Comprehensive Examination Psychiatric Diagnostic Evaluation Comprehensive Examination 55901 JAXON LEAL [facility] Psychometric Emotional / Behavioral A e ment Psychometric Emotional / Behavioral Assessment 20529 JAXON LEAL [facility] Psychotherapy Individual Approximately 60 Minutes Psychotherapy Individual Approximately 60 Minutes 28186 JAXON LEAL [facility] Psychiatric Diagnostic Evaluation Review of Records and Reports Psychiatric Diagnostic Evaluation Review of Records and Reports 50226 JAXON LEAL [facility] Physical Therapy: ___ Se ion Segments, 15 Minutes Each Physical Therapy: ___ Session Segments, 15 Minutes Each 29377 CROW SCOTT [facility] Occupational Therapy Evaluation Low Complexity Occupational Therapy Evaluation Low Complexity 89588 CROW SCOTT [facility] Physical Therapy Education Orthotics Training Physical Therapy Education Orthotics Training 51150 CROW SCOTT [facility] Modalities Ultrasound Modalities Ultrasound 37102 CROW SCOTT [facility] Wrist-hand orthosis, without joints, may include soft interface, straps, custom fabricated, includes fitting and adjustment CROW SCOTT [facility] Occupational Therapy Re-Evaluation Occupational Therapy Re-Evaluation 62053 CROW SCOTT [facility] Modalities Iontophoresis Modalities Iontophoresis 65204 CROW SCOTT [facility] Spectacles Services Fitting Monofocal Except For Aphakia Spectacles Services Fitting Monofocal Except For Aphakia 83299 MICHAEL WATKINS see SRTS [facility] Threshold Audiogram (Pure Tone) Automated Threshold Audiogram (Pure Tone) Automated 0208T CHHAYA-HEMAL CONWAY [facility] Preventive Medicine Administration Of Health Risk Questionnaire Patient-Focused Preventive Medicine Administration Of Health Risk Questionnaire Patient-Focused 33337 MARINE ALLAN [facility] Screening papanicolaou smear; obtaining, preparing and conveyance of cervical or vaginal smear to laboratory CHANG SHEPHERD [facility] Non-Physician Phone Call To Pt/Provider Intermed (11-20 min) Non-Physician Phone Call To Pt/Provider Intermed (11-20 min) 05834 VERITO NOLEN [facility] Colonoscopy with Biopsy (No Laterality) 022 auto-populate d from documented surgical case [facility]-E glin ablaisan/tubal ligation [facility] glin copostopy [facility]-E glin Social History Combined list of available smoking, tobacco, and other social history from 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 Social History Type Response Date Comment Sour e Female 03/11/2021 Ambulatory Pha rmacy This section is an empty social history section. [facility] Tobacco Never-cigarette user Cigarette use:. Never-other tobacco user (not cigarettes) Other Tobacco use:. Ambulatory Pharmacy Sexual Orientation Ambula tory Pharmacy Gender identity Ambulator y Pharmacy Assessment and Plan Combined list of future care activities from Department of Defense and Veterans Affairs facilities (e.g., assessment and plan notes, appointments, orders, and referrals). Additional future care activities may be listed in the Plan of Care section. Result Assessment and Plan Date Source Assessment and Plan Extracted from:Title : Lower back F/U Author: MARKUS PRITCHETT Date: 07/03/23 1.?Other intervertebral disc degeneration, lumbar region 2.?Segmental and somatic dysfunction of lumbar region 3.?Segmental and somatic dysfunction of sacral region 4.?Segmental and somatic dysfunction of pelvic region 5.?Segmental and somatic dysfunction of thoracic region Extracted from:Title: [facility] Lower Back Pain F/U Author: BIANCA MARIANO CERTIFIED NURSING ASSISTANT INSTRUCTOR Date: 06/19/23 HC with a 42 yo ADAF female with a history of low back pain w/o previous injury.?? History?of the condition is?consistent with back pain due to degenerative disease and possible misalignment.?Currently is followed with Chiropractor and PT.?Patient?without evidence of red flag symptoms such as?unexplained fevers,?weight loss or night sweats, history?of malignancy, chronic steroid use or immunosuppression, progressive neurological symptoms, bowel/bladder involvement or focal neurologic deficit. ? - Will refer to physical therapy and pain management?for treatment - Pt was provided hand out for lower back stretching exercises - RTC PRN failure to improve as expected with conservative treatment? ? ASIMS GREEN Arming Status: N/A IMR: Not due for anything Mobility Restriction: None, WWQ Duty Restriction: None Fitness Restriction: Yes, all comp 07/27/2023 No condition meeting MSD criteria for referral to [facility] at this time PRP: N/A ASIMS updated if necessary.? 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 Extracted from:Title: Lower back F/U Author: MARKUS PRITCHETT Date: 06/19/23 1.?Other intervertebral disc degeneration, lumbar region 2.?Segmental and somatic dysfunction of lumbar region 3.?Segmental and somatic dysfunction of sacral region 4.?Segmental and somatic dysfunction of pelvic region 5.?Segmental and somatic dysfunction of thoracic region Extracted from:Title: Lower back F/U Author: MARKUS PRITCHETT Date: 05/25/23 1.?Other intervertebral disc degeneration, lumbar region 2.?Segmental and somatic dysfunction of lumbar region 3.?Segmental and somatic dysfunction of sacral region 4.?Segmental and somatic dysfunction of pelvic region 5.?Segmental and somatic dysfunction of thoracic region Extracted from:Title: Lower back F/U Author: MARKUS PRITCHETT Date: 05/12/23 1.?Other intervertebral disc degeneration, lumbar region 2.?Segmental and somatic dysfunction of lumbar region 3.?Segmental and somatic dysfunction of sacral region 4.?Segmental and somatic dysfunction of thoracic region Extracted from:Title: [place] F2F - Allergy Symptoms/Allergy Eye Symptoms Author: TITI MOSQUEDA PA Date: 05/06/23 1.?Allergic rhinitis 42 Years?[employer]?Female?presents with SULEIMAN/allergy eye symptoms. ? - trial claritin/flonase/patanol - f/u if ongoing ? We discussed indications for RTC if not improving or reporting to the ER for any sudden changes or worsening in condition. PVUA with AP ? Discussed routine health screening and self referral process for mammograms ? ? SQ:?[address] ? 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 AUoF: n/a ? ASIMS:?GREEN NO?Duty Restrictions NO?Fitness Restrictions NO?Mobility Restrictions NO?Referral to [facility] Board Needed? Member? IS?WWQ ? Titi Msoqueda, CTR, DMSc, LUIS [facility]? 96 OMRS/SGXP ? Orders: loratadine(Claritin 10 mg oral tablet), 1 tab(s), Oral, Daily, PRN allergy symptoms, # 90 tab(s), 3 total refill(s), Maintenance, 1 tab(s) Oral Daily,PRN:allergy symptoms, Pharmacy: [facility] [Not filled] fluticasone nasal(Flonase 50 mcg/inh nasal spray), 50 mcg, Nostril-Both, BID, # 16 g, 5 total refill(s), Maintenance, 50 mcg Nostril-Both BID, Pharmacy: [facility] [Not filled] olopatadine ophthalmic(olopatadine 0.1% ophthalmic solution), 1 drop(s), Eye-Both, BID, # 5 mL, 2 total refill(s), Maintenance, 1 drop(s) Eye-Both BID, Pharmacy: [facility] [Not filled] Extracted from:Title: Lower back eval Author: MARKUS PRITCHETT Date: 05/04/23 1.?Other intervertebral disc degeneration, lumbar region 2.?Segmental and somatic dysfunction of lumbar region 3.?Segmental and somatic dysfunction of sacral region 4.?Segmental and somatic dysfunction of pelvic region 5.?Segmental and somatic dysfunction of thoracic region [facility] Author: STACIE DAVILA DO Date: 03/04/23 1.?Back pain Persistent chronic low back pain since last 2 years. Never had back pain prior to?epidural in 2010 and had intermittent pain since that time. Seen last in January and referred to physical therapy without significant improvement. Likely muscle spasm vs. soft tissue injury vs. sprain.?Has chronic dull pain, feels pressure back there as well. Takes motrin PRN, has put pillow behind the back when sleeping which is the only thing found to help improve her sleep. - No concerning findings for cauda equina syndrome including LE weakness, loss of bowel or bladder control, saddle parasthesias. No firm evidence of disk or nerve root compression, or stenosis at any level. -?Ice/heat alternating with?NSAID PRN, muscle relaxer?PRN -?Continue current HEP -Chiro referral placed at patient request -Patient has had negative x-ray, will place MRI?order?for eval due to prolonged nature ? -?Follow if not improving after?above therapies and to discuss MRI results?if anything remarkable ? ? ? Ordered: MRI Spine Lumbar w/o Contrast Referral Request 2.0 ? Orders: methocarbamol(Robaxin-750 oral tablet), See Instructions, take 1-2 tab(s) Oral as needed for muscle spasm up to three times a day, # 45 cap(s), 0 total refill(s), Maintenance, take 1-2 tab(s) Oral as needed for muscle spasm up to three times a day, Pharmacy: [facility] [Last filled With considerations to this diagnosis/procedure: Arming Status: N/A IMR: due for PHAQ Mobility Restriction: None, WWQ Duty Restriction: None Fitness Restriction: yes No condition meeting MSD criteria for referral to [facility] at this time PRP: N/A ASIMS updated if necessary.? 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 Extracted from:Title: Eye Care ROUTINE Author: JODI HALEY S, OD Date: 05/15/22 1.?Regular astigmatism, bilateral ???Diagnosis: ?1. ?Regular astigmatism, bilateral ?Comment:?Ordered:??Fitting Spectacles Xcpt Aphakia Monofocal [id number]; 05/15/2022 13:30:00 VALANCE CUTTER ? Determination Refractive State 70636; 05/15/2022 13:30:00 VALANCE CUTTER ? Ophthalmological Medical Xm&Eval Comprhnsv Estab Pt 1/> 27572; 05/15/2022 13:30:00 VALANCE CUTTER ? SEE SCANNED NOTE Extracted from:Title: Preop Note Author: JOEY MACK Date: 03/13/22 GASTROENTEROLOGY CLINIC COLONOSCOPY ? THE REASONS ? Colonoscopy is a diagnostic examination. ?Colonoscopy is sometimes useful to more carefully examine abnormalities suspected by previous x-ray studies. ?In some situations, a colonoscopy is a much more accurate way of examining the colon. ?Screening colonoscopies are?frequently used for the purpose of detecting and removing colon polyps. ?Polyps are abnormal growths of tissue which vary in size from a tiny dot to several inches. ?If polyps are detected during the colonoscopy, they may be removed (biopsies) by?small forceps, or by?placing a wire loop (snare) over the polyps and severing them from the intestinal wall by means of electrical current. ? ? THE PROCEDURE ? For this procedure, you will be placed in a comfortable position on your side. ?You will be given intravenous sedation. ?During the procedure, the physician will insert a long flexible fiber optic scope through the rectum and the entire colon. ?Abnormalities that are suspected by previous x-rays, and some abnormalities which are too small to be seen by x-ray, may be identified and examined more closely. ?If abnormal areas are found, an instrument can be passed through the colonoscope and small pieces of the tissue can be obtained for laboratory diagnosis. ?This procedure is usually very well tolerated and rarely causes pain. ? After the examination, you will be awake but quite sleepy from the sedative medications. ?You may experience some feeling of bloating or mild abdominal soreness. ?One may experience gas as a result of the air placed in the colon during the procedure. ?Unless told otherwise, you may resume your normal diet. ?You may experience some slight tenderness over the vein through which the sedative medications were given. ?Heat usually helps with this. ? THE RISKS ? Colonoscopy is considered a very safe, low risk procedure. ?Complications are quite rare but can occur. ?Complications may include perforation of the bowel, bleeding, or over sedation. More uncommon are drug reactions, heart attacks, and strokes. ?Any of these may require hospitalization for observation and may require transfusions or surgery. ? is extremely rare but remains a remote possibility. ? ? If you have any questions or unanticipated problems before the procedure, do not hesitate to contact the Gastroenterology clinic.?If you must?cancel your appointment, please call and leave a message.?Cancelations which are not made within 24 hours of the scheduled procedure are considered a? N o-Show . ? GOLYTELY PROCEDURE PREPARATION INSTRUCTION ? !!Please contact the GI Clinic immediately if you are taking Xarelto, Pradaxa, Coumadin, Plavix or any other blood?thinner/antiplatelet medication!! ? 1.??Follow a low fiber diet for one week prior to your procedure. 2.??The?DAY BEFORE?your procedure, ?, you should have only a CLEAR LIQUID?diet for the ENTIRE day. The approved clear liquids are listed below. ? APPROVED CLEAR LIQUIDS:?Water, popsicles, broth, bouillon, strained fruit juices without the pulp (apple, white grape, lemonade), tea, coffee, Sprite, 7-Up, Valeria Miracle, Gatorade, and Jell-O.? ?(No liquids which contain red, orange or purple dye)? Mix your prep as early as 6 hours prior to drinking it. ? ??You may mix?Lemonade?flavored CRYSTAL LIGHT WITH PREP. ?You may also use sugar-free, colorless, (Dodge) menthol drops and suck on them in between drinking Golytely 3.??At 6 PM the?EVENING BEFORE?your procedure,?begin drinking the chilled solution at a?rate of?ONE 8oz glass?every 10 minutes for a total of?8 glasses?(half of container). 4.??When you are finished drinking the solution,?you may?continue to have approved clear liquids until midnight. 5.??The?DAY OF?the procedure, start drinking the second half of the chilled solution?4?hours before your?procedure,? at a?rate of ONE 8oz glass?every 10 minutes??until jug is empty?(second half of container). 6.??Ensure you complete the prep at least 2 hours before your procedure start time, by?Once finished,?NOTHING TO EAT OR DRINK UNTIL AFTER YOUR COLONOSCOPY. THE DAY OF THE PROCEDURE ?Please follow the below instructions. ?Disregard the instructions that came with your prep. ???YOU MAY BRUSH YOUR TEETH?the morning of your procedure. ?Swish and spit, do not swallow mouthwash or toothpaste. ???You should wear comfortable clothes that are easy to change out of, flat shoes that are easy to slip on and off, and leave all jewelry (valuables) at home. ?For safety reasons, please do not wear nail welsh or jewelry to your procedure. ???Report to the Gastroenterology Clinic front end mechanic no later than?your?scheduled appointment time.??This is essential so we may have you prepared for your procedure?on?time. ???You?MUST?have an escort with you (18 yrs or older with a valid semi truck driver?s license) to take you home. ?Your escort will also receive your discharge instructions. Your escort?MUST?remain in the hospital during your procedure. Furthermore, we highly recommend your escort or another adult be with you the remainder of the day. Failure to bring an escort?WILL?result in cancellation of your procedure. ???Please park as close to the Emergency Room Patient entrance as possible ([address] [place], west of the main hospital entry). ?If your escort is unfamiliar with the hospital, please ensure they are acquainted with this entrance in relation to the location your vehicle is parked. ???The preparation of the colon is extremely important in order to ensure an adequate examination. It is absolutely essential that you comply with the?ABOVE?instructions. ?Fail ure to follow instructions to include pre procedure testing, will result in cancelation of your appointment.? ? ? If you have any questions or unanticipated problems before the procedure, do not hesitate to contact the Gastroenterology clinic.?If you must?cancel your appointment, please call? ?and leave a message.?Cancelations which are not made within 24 hours of the scheduled procedure are considered a? N o-Show . Low-fiber diet for colonoscopy preparation ? PE OF FOOD OR DRINK YES? ? OK TO EAT THESE FOODS NO? ? AVOID THESE FOODS Milk and dairy ? OK to eat: ??Milk ??Cream ??Hot chocolate ??Buttermilk ??Cheese, including cottage cheese ??Yogurt ??Sour cream ? NO yogurt mixed with: ??Nuts, seeds, granola ??Fruit with skin or seeds (such as berries) ? Bread and grains ? OK to eat: ??Breads and grains made with refined white flour (including rolls, muffins, bagels, pasta) ??White rice ??Plain crackers, such as Saltines ??Low-fiber cereal (including puffed rice, cream of wheat, corn flakes) ? ? ? NO whole grains or high-fiber: ??Brown or wild rice ??Whole grain bread, rolls, pasta, or crackers ??Whole grain or high-fiber cereal (including granola, raisin bran, oatmeal) ??Bread or cereal with nuts or seeds ? ? ? Meat ? OK to eat: ??Chicken ??Repton ??Moreno ??Lean pork ??Veal ??Fish and seafood ??Eggs ??Tofu ? NO tough meat with gristle Legumes ? None allowed NO: ??Dried peas (including split or black-eyed) ??Dried beans (including kidney, espinosa, garbanzoDchickpea) ??Lentils ??Any other legume ? ? ? Fruits ? OK to eat: ??Fruit juice without pulp ??Applesauce ??Ripe cantaloupe and honeydew ??Ripe, peeled apricots and peaches ??Canned or cooked fruit without seeds or skin ? NO seeds, skin, membranes;??or dried fruit: ??Raw fruit with seeds, skin, or membranes (includes berries, pineapple, apples, oranges, watermelon) ??Any cooked or canned fruit with seeds or skin ??Raisins or other dried fruit ? ? Vegetables ? OK for some if cooked or canned: ??Canned or cooked vegetables without skin or peel (includes peeled carrots, mushrooms, turnips, asparagus tips) ??Potatoes without skin ??Cucumbers without seeds or peel ? ? NO raw, skin, seeds, peel; or certain other vegetables: ??[place] ??Potatoes with skin ??Tomatoes ??Cucumbers with seeds and peel ??Cooked cabbage or [place] sprouts ??Green peas ??Summer and winter squash ??Ballard beans ??Onions ? Nuts, nut butter, seeds ? OK to eat: ??Creamy (smooth) peanut or almond butter NO nuts or seeds: ??Nuts including peanuts, almonds, walnuts ??[place] nut butter ??Seeds such as fennel, sesame, pumpkin, sunflower ? ? Fats and oils ? OK to eat: ??Butter ??Margarine ??Vegetable and other oils ??Mayonnaise ??Salad dressings made without seeds or nuts ? NO salad dressing made with seeds or nuts Soups ? OK to eat: ??Broth, bouillon, consomme, and strained soups ??Milk or cream-based soup, strained ? No: ??Unstrained soups ??Land O'Lakes ??Lentil soup ??Dried mccauley soup ??[place]nam soup ??Pea soup ? Desserts ? OK to eat: ??Custard ??Plain pudding ??Ice cream ??Sherbet or sorbet ??Jell-O or gelatin without added fruit or red or purple dye ??Cookies or cake made with white flour, prepared without seeds, dried fruit, or nuts ? NO: ??Coconut ??Anything with seeds or nuts ??Anything with added red or purple dye ??Cookies or cakes made with whole grain flour, seeds, dried fruit, or nuts ? ? ? Drinks or beverages ? OK to eat: ??Coffee ??Tea ??Hot chocolate or cocoa ??Clear fruit drinks (no pulp) ??Soda and other carbonated beverages ??Ensure, Boost, or Enlive without added fiber ? NO: ??Fruit or vegetable juice with pulp ??Beverages with red or purple dye ? Other ? OK to eat: ??Sugar ??Salt ??Jelly ??Honey ??Syrup ??Lemon juice ? NO: ??Coconut ??Popcorn ??Jam ??Marmalade ??Relishes ??Pickles ??Olives ??Stone-ground mustard ? Extracted from:Title: Office Clinic Note Author: KUMAR LIRIANO Date: 03/13/22 1.?Preprocedural examination done The patient was counseled on the risks and benefits of?colonoscopy to include adverse sedation event (including hypotension or hypoventilation), bleeding, bowel perforation requiring surgical correction, or missed colon polyp or missed colon cancer. 2.?Family history of cancer of colon Mother with CRC at age 45. Will require colonoscopy ate least every 5 years pending results. Orders: polyethylene glycol 3350 with electrolytes(GoLYTELY oral powder for reconstitution), 240 mL, Oral, every 10 min, PRN other (see comment), per clinic instructions, # 4,000 EA, 0 total refill(s), Maintenance, bowel prep, 240 mL Oral every 10 min,PRN:other (see comment),Instr:per clinic instructions, Pharmacy: [facility] [Not filled] Extracted from:Title: Office Clinic Note Author: LEO NIXON Date: 01/28/22 1.?Low back pain Continue with stretching, Ice/Heat. Will refer to chiro to evaluate and treat ; Follow up here as needed Ordered: tiZANidine(tiZANidine 2 mg oral tablet), See Instructions, 2 tab(s) Oral every 8 hr, # 40 cap(s), 0 total refill(s), Maintenance, take 1-2 tabs every 6 hours as needed, 2 tab(s) Oral every 8 hr, Pharmacy: [facility] [Last filled 01/28/22] XR Spine Lumbosacral 4+ Views Referral Request 2.0 ? 04/06/2024 Ambulatory Pharmacy Functional Status Combined list of recent functional and cognitive assessments recorded at Department of Defense and Veterans Affairs (VA).VA Functional [place] Measurement (FIM) Scale: 1 = Total Assistance (Subject = 0% +), 2 = Maximal Assistance (Subject = 25% +), 3 = Moderate Assistance (Subject = 50% +), 4 = Minimal Assistance (Subject = 75% +), 5 = Supervision, 6 = Modified [place] (Device), 7 = Complete [place] (Timely, Safely). Assessment Date/Time Source Assessment Type Assessment Skill Assessment Score Assessment Details FUNCTIONAL 03/13/22 Living Situation Home independently Ability to Read/Write Able to read, Able to write
== END 2024-03-31 10:28 | disposition home or self-care (01) ==
PROVIDERS: Visit Provider Registered Nurse
DX: U07.1 COVID-19 (principal)

== ENCOUNTER → 2024-03-31 09:56 | Outpatient (BNVA) | payer OTHER, SELFPAY | PROVIDERS: Visit Provider Registered Nurse | DX: U07.1 COVID-19 (principal) | CPT/HCPCS: 99202 ==